=== PATIENT | male | born 1945 | race Caucasian/White ===

== ENCOUNTER 2019-09-12 07:20 | Emergency (ER) | payer OTHER ==
--- OUTSIDE RECORDS SUMMARY | 2019-09-12 07:23 | XMS REPORT | Clinical Summary ---
:1945 Author Organization [facility] Address [address] [place] [id number] Care Team Providers Name Role Phone MD Mark Primary Care Provider Allergies Active Allergy Reactions Severity Noted Date Comments Penicillins Other (See Comments) 07/11/2009 Upsets stomach Medications Medication Sig Dispensed Refills Start Date End Date Status mupirocin (BACTROBAN) 2 Apply to wound 0 10/08/2018 Active % ointment twice a day triamcinolone (KENALOG) Apply to affected 0 05/04/19 20 Active 0.1 % cream area on legs 2 times daily as needed for 2-4 weeks. Avoid face/groin/axilla e. ojmorunf-ndgcaihsyr-xac as needed. 0 08/18/2018 Active ymyxin (VERONICA-POLYCIN) ophthalmic ointment Active Problems Problem Noted Date SOB (shortness of breath) 05/11/2019 Subclavian arterial stenosis 05/11/2019 Encounters Date Type Specialty Care Team Description 05/19/2019 Travel 05/11/2019 Office Visit Cardiology Colby Au MD SOB (yin rtness of breath) (Primary Dx); Subclavian collette rial stenosis (HCC); Carotid artery disease, unspecified laterality, unspecified type (HCC) after 09/11/2018 Social History Tobacco Use Types Packs/Day Years Used Date Current Every Day Smoker Cigarettes 1.5 50 Smokeless Tobacco: Never Used Alcohol Use Drinks/Week oz/Week Comments Yes 7 Cans of beer 7.0 Sex Assigned at Date Recorded Not on file Job Start Date Occupation Industry Not on file Not on file Not on file Travel History Travel Start Travel End No recent travel history available. Last Filed Vital Signs Vital Sign Reading Time Taken Comments Blood Pressure 117/77 05/11/2019 11:01 AM [employer] Pulse 77 05/11/2019 11:01 AM [employer] Temperature - - Respiratory Rate - - Oxygen Saturation - - Inhaled Oxygen Concentration - - Weight 60.3 kg (133 lb) 05/11/2019 11:01 AM [employer] Height 170.2 cm (5' 7") 05/11/2019 11:01 AM [employer] Body Mass Index 20.83 05/11/2019 11:01 AM [employer] Plan of Treatment Date Type Specialty Care Team Description 05/09/2020 Office Visit Cardiology Colby Au MD [address] [place], [place] [address] [phone] Health Maintenance Due Date Last Done Comments COLONOSCOPY SCREENING 07/05/1993 SHINGLES VACCINES (#1) 07/05/1993 65+ PNEUMOCOCCAL VACCINE (1 of 2 - PCV13) 07/05/2008 INFLUENZA VACCINE 10/09/2019 Procedures Procedure Name Priority Date/Time Associated Diagnosis Comme nts TTE COMPLETE, W Routine 05/19/2019 2:34 PM SOB (shortness of Results for this CONTRAST, W DOPPLER CDT breath) procedure are in (C8929) Subclavian arterial the resu lts stenosis (HCC) section. Carotid artery disease, unspecified laterality, unspecified type (HCC) ECG 12-LEAD Routine 05/11/2019 11:00 AM SOB (shortness of Res ults for this [employer] breath) procedure are i n the results section. after 09/11/2018 Results Transthoracic Echocardiogram Complete, (w Contrast, Strain and 3D if needed) (05/19/2019 2:34 PM CDT) Specimen Narrative Performed At [facility] Echo cardiography Report Pat.Name: TAHIR CARVAJAL Pat.ID: [id number]Date: 05/19/2019 Refer.MD: COLBY AU MD Exam Time: 10:42:00 AM Study Type:Ro utine Echo Height: 67in Weight: 133lb BSA: 1.7 m2 A ge: 1945,73Y Sex: MALE BP: 117/77 HR: 70 bpm Sonogrphr: SINTIA Marroquin FASE Pat. Stat.:Outpatient Room: [facility] Study Status:Final Echo Event ID:[id number] Order ID: [id number] Reason for Study:SOB, suspected cardiac etiology Procedures: 2D Echo, Colorflow Doppler Race: C SUMMARY: Normal 2D and Doppler examination. FINDINGS: LV: LV size is normal. LV EF is normal. Overall wall motion is normal. Estimated EF is 55-59%. RV: RV size is normal. RV systo lic function is normal. LA: LA size is normal. RA: RA size is normal. AO: Aortic root diameter is nor mal. ALIX: No pericardial effusion. AV: No structural AV abnormalit ies noted. MV: No structural MV abnormalit ies noted. PV: Pulmonic valve not well see n. TV: No structural TV abnormalit ies noted. Alvarado: Normal diastolic function an d LV filling pressures. Other: Estimated PA systolic pressu re is 21 mmHg, assuming a mean RAP of 5 mmHg. MEASUREMENTS: 2D Parasternal Long [place] Ao An 1.5 cm LVPWd 0.65 cm Ao Rtd 3.4 cm Index 2 cm/m2 LA Ds 2.1 cm IVSd 0.71 cm RWT 0.36 LVIDd 3.6 cm Index 2.1 cm/m2 LV Mass 64 g (122-1 74) LVIDs 2.5 cm LVM In dex 38 g/m LV%fs 31 % LVOT 1.4 cm LA Sng Plane LA Area 9.4 cm (8.8-23.4) LA Vol 17 ml Index 9.9 ml/m2 LA LngAx 4.8 cm LVOT LVOT Area 1.6 cm Signed 05/19/2019 05:06 PM Yasir Diaz MD Procedure Note Interface, Radiology Results In - 2019 5:08 PM CDT [facility] Echocardiography Report Pat.Name: TAHIR CARVAJAL Pat.I D: [id number] .Date: 05/19/2019 Refer .MD: COLBY AU MD Exam Time: 10:42:00 AM Study Type:Routine Echo Height: 67in Weigh t: 133lb BSA: 1.7 m2 Age: 2 1945,73Y Sex: MALE BP: 117/77 HR: 70 bpm Sonogrphr: SINTIA Marroquin FASE Pat. Stat.:Outpatient Room: [place] Study Status:Final Echo Event ID:[id number] Order ID: [id number] Reason for Study:SOB, suspected cardiac etiology Procedures: 2D Echo, Colorflow Doppler Race: C SUMMARY: Normal 2D and Doppler examination. FINDINGS: LV: LV size is normal. LV EF is no rmal. Overall wall motion is normal. Estimated EF is 55-59 %. RV: RV size is normal. RV systolic function is normal. LA: LA size is normal. RA: RA size is normal. AO: Aortic root diameter is normal . ALIX: No pericardial effusion. AV: No structural AV abnormalities noted. MV: No structural MV abnormalities noted. PV: Pulmonic valve not well seen. TV: No structural TV abnormalities noted. Alvarado: Normal diastolic function and LV filling pressures. Other: Estimated PA systolic pressure is 21 mmHg, assuming a mean RAP of 5 mmHg. 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 Performing Organization Address City/[facility]/[place] [employer] Phone Number [facility] [address] [address] [place] [address] after 09/11/2018 Insurance Payer Benefit Plan / Subscriber ID Effective Dates Phone Addre ss Type Group MEDICARE MEDICARE PART A xxxxxxxxxxx 2008-Present [place] B Advance Directives For more information, please contact: [phone] Type Date Recorded Patient Information Services Tech Explanati on Advance Directives, Living Will and Medical Power of Electrician Chief
--- OUTSIDE RECORDS SUMMARY | 2019-09-12 07:25 | XMS REPORT ---
:1945 Author Organization [employer] Care Team Providers Name Role Phone Shi Ingram Provider Role Unavailable Allergies No Known Allergies Problems Problem Type Condition Code Onset Dates Condition Statu s Problem Renal mass N28.89 Active Medications No Known Medications Results No Known Results Summary Purpose [employer] Submission
--- OUTSIDE RECORDS SUMMARY | 2019-09-12 07:25 | XMS REPORT ---
:1945 Author Organization [employer] Care Team Providers Name Role Phone Shi Ingram Provider Role Unavailable Allergies, Adverse Reactions, Alerts Substance Reaction Event Type pcn Info Not Available Non Drug Allergy Problems Problem Type Condition Code Onset Dates Condition Statu s Assessment Renal mass N28.89 Active Problem Renal mass N28.89 Active Medications Medication Code Code Instructions Start End Status Dosage System Date Date Mupirocin NDC 90661113256 2 % Externally Active 1 a pplication Three times a day Lotrimin AF NDC 87050155544 1 % Externally Active 1 application Twice a day Triamcinolone NDC 0 0.1 & 5 % Active as direc luke Acet-Dimethicone Externally Results No Known Results Summary Purpose eClinicalWorks Submission
--- OUTSIDE RECORDS SUMMARY | 2019-09-12 07:25 | XMS REPORT | Clinical Summary ---
:1945 Author Organization [facility] Address [address] [place] [address] Care Team Providers Name Role Phone Phu Hussein Unavailable Allergies Active Allergy Reactions Severity Noted Date Comments Penicillins 09/07/2019 Stomach upset, diarrhea Medications Medication Sig Dispensed Refills Start Date End Date Status albuterol HFA Inhale 1 puff by 0 Active (VENTOLIN HFA) 90 mouth via inhaler mcg/actuation inhaler every 6 (six) hours as needed for Wheezing. fluticasone-umeclidin- Inhale by mouth 0 Active vilanter 100-62.5-25 via inhaler daily. mcg DsDv Active Problems Problem Noted Date Lung nodule 09/08/2019 Mediastinal lymphadenopathy 09/08/2019 Encounters Date Type Specialty Care Team Description 09/08/2019 Anesthesia Event Virgen Maria CRNA 09/08/2019 Surgery Bassam Fierro BRONCHOSCOPY,EN DOBRONCH MD [facility] IAL ULTRASOUND (EBUS) TRANSTRACH/ TRA NSBRONCH SAMPLING 09/08/2019 Hospital Encounter Bassam Fierro MD 09/08/2019 Outside Orders Lab Bassam Fierro MD 09/07/2019 Hospital Encounter Pre-Admission Arrived Testing 09/03/2019 Hospital Encounter Computed Bassam Fierro Lung nodu le; Tomography MD [facility] 08/26/2019 Outside Orders Central Scheduling Bassam Fierro Lung no dule (Primary Dx); MD [facility] Mediastinal lym phadenopathy 08/11/2019 Orders Only Urology Bipin Lamar Right renal ma sebastian Arguelles MD (Primary Dx) after 09/11/2018 Social History Tobacco Use Types Packs/Day Years Used Date Current Every Day Smoker 0.5 50 Smokeless Tobacco: Never Used Alcohol Use Drinks/Week oz/Week Comments Yes 7 Cans of beer 4.2 Sex Assigned at Date Recorded Not on file Job Start Date Occupation Industry Not on file Not on file Not on file Travel History Travel Start Travel End No recent travel history available. Last Filed Vital Signs Vital Sign Reading Time Taken Blood Pressure 111/67 09/08/2019 12:10 PM CDT Pulse 73 09/08/2019 12:10 PM CDT Temperature 36.3 C (97.4 F) 09/08/2019 12:10 PM CDT Respiratory Rate 15 09/08/2019 12:10 PM CDT Oxygen Saturation 99% 09/08/2019 12:10 PM CDT Inhaled Oxygen Concentration - - Weight 58.9 kg (129 lb 14.4 oz) 09/08/2019 6:1 2 AM CDT Height 170.2 cm (5' 7") 09/08/2019 6:12 AM CDT Body Mass Index 20.35 09/08/2019 6:12 AM CDT Plan of Treatment Date Type Specialty Care Team Description 09/29/2019 Hospital Encounter Radiology Bipin Lamar MD [address] Urology [place]ame[place] [id number] [phone] Procedures Procedure Name Priority Date/Time Associated Diagnosis Comme nts TRANSFUSION SERVICE 09/09/2019 6:04 REPORT - SCAN PM CDT BRONCHIAL CULTURE + Routine 09/08/2019 4:21 Resu lts for this GRAM STAIN PM CDT procedure are i n the results section. XR CHEST 1 VIEW STAT 09/08/2019 11:24 Results for this PORTABLE/BEDSIDE AM CDT procedure a re in the results section. REPORT OF PROCEDURE 09/08/2019 11:01 - ENDOSCOPY URL AM CDT EBUS FNA REQUEST Routine 09/08/2019 10:42 Results for this AM CDT procedure are i n the results section. FINE NEEDLE AP Routine 09/08/2019 10:42 Results for this ASPIRATE BY EBUS AM CDT procedure a re in the results section. EBUS FNA REQUEST Routine 09/08/2019 10:37 Results for this AM CDT procedure are i n the results section. FINE NEEDLE AP Routine 09/08/2019 10:37 Results for this ASPIRATE BY EBUS AM CDT procedure a re in the results section. EBUS FNA REQUEST Routine 09/08/2019 10:32 Results for this AM CDT procedure are i n the results section. FINE NEEDLE AP Routine 09/08/2019 10:32 Results for this ASPIRATE BY EBUS AM CDT procedure a re in the results section. AFB CULTURE + SMEAR Routine 09/08/2019 10:31 (NON-SPUTUM) AM CDT BRONCHIAL CULTURE + Routine 09/08/2019 10:31 Resu lts for this GRAM STAIN AM CDT procedure are i n the results section. FUNGUS CULTURE + Routine 09/08/2019 10:31 SMEAR AM CDT CYTOLOGY REQUEST Routine 09/08/2019 10:31 Results for this AM CDT procedure are i n the results section. SPIN/CONCENTRATION Routine 09/08/2019 10:31 Resul ts for this CHARGE AM CDT procedure are i n the results section. CYTOLOGY AP Routine 09/08/2019 10:31 Results for this AM CDT procedure are i n the results section. AFB CULTURE + SMEAR Routine 09/08/2019 10:29 (NON-SPUTUM) AM CDT FUNGUS CULTURE + Routine 09/08/2019 10:29 SMEAR AM CDT SPIN/CONCENTRATION Routine 09/08/2019 10:29 Resul ts for this CHARGE AM CDT procedure are i n the results section. CYTOLOGY REQUEST Routine 09/08/2019 10:28 Results for this AM CDT procedure are i n the results section. CYTOLOGY AP Routine 09/08/2019 10:28 Results for this AM CDT procedure are i n the results section. FL FLUORO Routine 09/08/2019 10:25 Results for this NON-SPECIFIC UP TO AM CDT procedure are in 1 HOUR the results section. AFB CULTURE + SMEAR Routine 09/08/2019 9:57 (NON-SPUTUM) AM CDT SURGICALLY OBTAINED Routine 09/08/2019 9:57 Resu lts for this CULTURE + GRAM AM CDT procedure are in STAIN the results section. FUNGUS CULTURE + Routine 09/08/2019 9:57 SMEAR AM CDT AFB CULTURE + SMEAR Routine 09/08/2019 9:49 (NON-SPUTUM) AM CDT SURGICALLY OBTAINED Routine 09/08/2019 9:49 Resu lts for this CULTURE + GRAM AM CDT procedure are in STAIN the results section. FUNGUS CULTURE + Routine 09/08/2019 9:49 SMEAR AM CDT FINE NEEDLE Routine 09/08/2019 9:47 Results for this ASPIRATE (FNA) AM CDT procedure are in REQUEST the results section. FINE NEEDLE AP Routine 09/08/2019 9:47 Results for this ASPIRATION BY AM CDT procedure are in CLINICIAN the results section. BRONCHOSCOPY,ENDOBR 09/08/2019 8:00 Lung nodule ONCHIAL ULTRASOUND AM CDT Mediastinal (EBUS) DIAGNOSTIC/ lymphadenopathy THERAPEUTIC Special Needs (RADIO EBUS, SUPER DIMENSION RESERVED GE 9900 LANGUAGE TRANSLATOR, OLYMPUS MERIT REP MAYBE PRESENT, AND INTUITIVE SURGI EDITH REP MAYBE PRESENT) BRONCHOSCOPY,BRUSHINGS 09/08/2019 8:00 AM CDT L jacky nodule Mediastinal lymphadenopathy Special Needs (RADIO EBUS, SUPER DIMENSION RESERVED GE 9900 LANGUAGE TRANSLATOR, OLYMPUS MERIT REP MAYBE PRESENT, AND INTUITIVE SURGI EDITH REP MAYBE PRESENT) BRONCHOSCOPY,BRONCHIAL ALVEOLAR 09/08/2019 8:00 AM Lung nodule LAVAGE CDT Mediastinal lymphadenopathy Special Needs (RADIO EBUS, SUPER DIMENSION RESERVED GE 9900 LANGUAGE TRANSLATOR, OLYMPUS MERIT REP MAYBE PRESENT, AND INTUITIVE SURGI EDITH REP MAYBE PRESENT) BRONCHOSCOPY,TRANSBRONCHIAL LUNG 09/08/2019 8:0 0 Lung nodule BIOPSY AM CDT Mediastinal lymphadenopathy Special Needs (RADIO EBUS, SUPER DIMENSION RESERVED GE 9900 LANGUAGE TRANSLATOR, OLYMPUS MERIT REP MAYBE PRESENT, AND INTUITIVE SURGI EDITH REP MAYBE PRESENT) BRONCHOSCOPY,TRANSBRONCHIAL NEEDLE 09/08/2019 8 :00 Lung nodule ASPIRATION BIOPSY AM CDT Mediastinal lymphadenop athy Special Needs (RADIO EBUS, SUPER DIMENSION RESERVED GE 9900 LANGUAGE TRANSLATOR, OLYMPUS MERIT REP MAYBE PRESENT, AND INTUITIVE SURGI EDITH REP MAYBE PRESENT) BRONCHOSCOPY,SUPER D 09/08/2019 8:00 AM CDT Elisa g nodule Mediastinal lymphadenopathy Special Needs (RADIO EBUS, SUPER DIMENSION RESERVED GE 9900 LANGUAGE TRANSLATOR, OLYMPUS MERIT REP MAYBE PRESENT, AND INTUITIVE SURGI EDITH REP MAYBE PRESENT) BRONCHOSCOPY,ENDOBRONCHIAL 09/08/2019 8:00 AM L jacky nodule ULTRASOUND (EBUS) TRANSTRACH/ CDT Mediastinal lymphadenopathy TRANSBRONCH SAMPLING Special Needs (RADIO EBUS, SUPER DIMENSION RESERVED GE 9900 LANGUAGE TRANSLATOR, OLYMPUS MERIT REP MAYBE PRESENT, AND INTUITIVE SURGI EDITH REP MAYBE PRESENT) ABORH, MANUAL STAT 09/08/2019 6:34 Results fo r this AM CDT procedure are i n the results section. CBC W/PLT COUNT & STAT 09/08/2019 6:26 Result s for this AUTO DIFFERENTIAL AM CDT procedure are in the results section. TYPE AND SCREEN, Routine 09/08/2019 6:26 Results for this AUTOMATED AM CDT procedure are i n the results section. APTT STAT 09/08/2019 6:26 Results for this AM CDT procedure are i n the results section. PROTHROMBIN TIME/INR STAT 09/08/2019 6:26 Res ults for this AM CDT procedure are i n the results section. CBC W/PLT COUNT & STAT 09/08/2019 6:26 Result s for this AUTO DIFFERENTIAL AM CDT procedure are in the results section. COMPREHENSIVE STAT 09/08/2019 6:26 Results fo r this METABOLIC PANEL AM CDT procedure ar e in the results section. POCT-GLUCOSE METER Routine 09/08/2019 6:05 Resul ts for this AM CDT procedure are i n the results section. CT CHEST WITHOUT IV Routine 09/03/2019 11:18 Lung nodule Results for this CONTRAST AM CDT Mediastinal procedure are i n lymphadenopathy the results section. after 09/11/2018 Results TRANSFUSION SERVICE REPORT - SCAN (09/09/2019 6:04 PM CDT) Narrative Performed At This result has an attachment that is no t available. Bronchial culture + gram stain (09/08/2019 4:21 PM CDT)Only the most recent of2 resultswithin the time period is included. Result No growth [facility] Gram Stain Result <1+ White blood cells seen [facility] Gram Stain Result No organisms seen [facility] Specimen Bronch Brushing Performing Organization Address City/State/Zipcode Phone Number [facility] [address] [place] [address] CENTER XR chest 1 view portable / bedside (09/08/2019 11:24 AM CDT) Specimen Narrative Performed At FINAL REPORT GE [facility] CLINICAL HISTORY: s/p J CARLOS TBBX, rule out PTX TECHNIQUE: 1 view of the chest. COMPARISON: CT 09/03/2019 IMPRESSION: There is no evidence of pneumothorax sta tus post biopsy of the left upper lung nodule. There are no new infi ltrates or effusions. The cardiomediastinal silhouette is within n ormal limits for size. Signed: Vilma Aparicio MD Report Verified Date/Time:09/08/2019 12:05:58 Reading [facility] [place] Procedure Note Interface, External Ris In - 09/08/2019 12:08 PM CDT FINAL REPORT CLINICAL HISTORY: s/p J CARLOS TBBX, rule out PTX TECHNIQUE: 1 view of the chest. COMPARISON: CT 09/03/2019 IMPRESSION: There is no evidence of pneumothorax sta tus post biopsy of the left upper lung nodule. There are no new infi ltrates or effusions. The cardiomediastinal silhouette is within n ormal limits for size. Signed: Vilma Aparicio MD Report Verified Date/Time: 09/08/2019 1 2:05:58 Reading Location: [facility] Reading Room Performing Organization Address City/[facility] Phone Number RIS REPORT OF PROCEDURE - ENDOSCOPY URL (09/08/2019 11:01 AM CDT) Narrative Performed At This result has an attachment that is no t available. EBUS FNA REQUEST (09/08/2019 10:42 AM CDT)Only the most recent of3 resultswithin the time period is included. Cytology See Separate Report [facility] Specimen EBUS Fine Needle Aspirate - Lymph Node, Interlobar, Left, Station 11L Performing Organization Address City/[facility] Centercode Phone Number [facility] MEDICAL [address] [place] [address] CENTER Fine Needle Aspiration by EBUS (09/08/2019 10:42 AM CDT)Only the most recent of3 resultswithin the time period is included. Case Report Medical Cytology Report Case: [id number] [facility] Authorizing Provider:Bassam Olson MDCollected: 09/08/2019 10:42 AM [facility] Ordering Location: [facility] PERIOPERATIVE Received:09/08/2019 01:40 PM SERVICES Pathologist: Mu Snider MD Specimen:Lymph Node, Interlobar, Left, Station 11L DIAGNOSIS LYMPH NODE, INTERLOBAR, LEFT , STATION 11L, FNA BY CLINICIAN (CYTOSPINS AND CELL BLOCK OF ASPIRATE): [facility] - NON-DIAGNOSTIC ASPIRATE [facility] - SCATTERED BENIGN BRONCH IAL CELLS AND MACROPHAGES PRESENT; NO LYMPHOID TISSUE IDENTIFIED Signing Pathologist Direct Phone Line: [phone] COMMENT [facility] Please also see surgical pat hology report [id number] and cytopathology reports [id number]; [id number] through [id number]. [facility] CPT Code(s) 24421, 19883 [facility] CLINICAL DATA Lung nodule; mediastinal [facility] lymphadenopathy; chronic [facility] obstructive pulmonary disease; current every day smoker; skin cancer - multiple, removed SPECIMEN SOURCE LYMPH NODE, INTERLOBAR, LEFT, CH I [facility] STATION 11L FNA [facility] GROSS DESCRIPTION Received 33 ml cytorich red fixative sample; prepared cell block(A2) and 2 cytospins [facility] Collected: [id number] [facility] CE NTER Received: [id number] SPECIAL STUDIES The interpretation of this ase included the use of immunohistochemistry or special stains. [facility] Control Slides Examined: In -house known positive controls were evaluated along with the test tissue. These control slides run alongside of the patients sample show appropriate staining. Internal posit viola and negative controls when available are aleja morales Immunohistochemistry technic al testing was performed at [facility], Pathology Laboratory where it was developed and its performance characteristics were determined. It has not be en cleared or approved by [facility] U.S. Food and Drug Administration. The FDA has determined that such clearance or approval is not necessary. The test is used for clinical purposes. It should not be regarde d as investigational or for research. This laboratory is certified under the Clinical Laboratory Improvement Amendments of 1988 (CLIA-88) as qualified to perform high complexity clinical laboratory testing. Gross assessment was [facility] performed at [place], Department of [facility] Pathology, [address] [place] [address], Technical component was [facility] performed at [place], Department of [facility] Pathology, [address] [place] [address], Professional component [facility] was performed at [place], Department of [facility] Pathology, [address] [place] [address], Specimen EBUS Fine Needle Aspirate - Lymph Node, Interlobar, Left, Station 11L Narrative Performed At This result has an attachment that is no t available. Performing Organization Address City/[facility]/Zipcode Phone Number [address] [address] [place] CYTOLOGY REQUEST (09/08/2019 10:31 AM CDT)Only the most recent of2 resultswithin the time period is included. Cytology See Separate Report [facility] Specimen BAL Performing Organization Address City/[facility]/Zipcode Phone Number [address] [address] [place] SPIN/CONCENTRATION CHARGE (09/08/2019 10:31 AM CDT)Only the most recent of2 resultswithin the time period is included. Concentration charged Done [facility] Specimen BAL Performing Organization Address [facility]/Zipcode Phone Number [address] [address] [place] Cytology (09/08/2019 10:31 AM CDT)Only the most recent of2 resultswithin the time period is included. Case Report Medical Cytology Report Case: [id number] [facility] Authorizing Provider:Bassam Olson MDCollected: 09/08/2019 10:31 AM [facility] Ordering Location: [facility] PERIOPERATIVE Received:09/08/2019 01:40 PM SERVICES Pathologist: Mu Snider MD Specimen:Lung, Left Upper Lobe, BAL DIAGNOSIS LUNG, LEFT UPPER LOBE, BAL (CYTOSPINS): [facility] - POSITIVE FOR MALIGNANCY [facility] - POORLY DIFFERENTIATED NONSMALL CELL [place] Signing Pathologist Direct Phone Line: [phone] COMMENT Please also see surgical [facility] pathology report [id number] [facility] and cytopathology reports [id number]; [id number] through [id number]. CPT Code(s) 91514 [facility] CLINICAL DATA Lung nodule; mediastinal [facility] lymphadenopathy; chronic [facility] obstructive pulmonary disease; current every day smoker; skin cancer - multiple, removed SPECIMEN SOURCE LUNG, LEFT UPPER LOBE BAL [facility] GROSS DESCRIPTION Received 5 ml bloody fluid; prepared 4 cytospi ns [facility] Collected: [id number] [facility] CE NTER Received: [id number] STATEMENT OF ADEQUACY Satisfactory [facility] Gross assessment was [facility] performed at [place], Department of [facility] Pathology, [address] [place] [address], Technical component was [facility] performed at [place], Department of [facility] Pathology, [address] [place] [address], Professional component was [facility] performed at [place], Department of [facility] Pathology, [address] [place] [address], Specimen BAL Narrative Performed At This result has an attachment that is no t available. Performing Organization Address City/State/Zipcode Phone Number [address] [phone] [facility] non-specific up to 1 hour (09/08/2019 10:25 AM CDT) Specimen Narrative Performed At Fluoroscopic unit utilized for a procedure performed i n the OR.No GE RIS interpretation was requested.Refer to the operativ e report for findings.Refer to PACS for patient radiation dose information. Procedure Note Interface, External Ris In - 09/09/2019 11:12 AM CDT Fluoroscopic unit utilized for a procedu re performed in the OR. No interpretation was requested. Refer to the operative r eport for findings. Refer to PACS for patient radiation dose information. Performing Organization Address City/State/Zipcode Phone Number GE RIS Surgically obtained culture + gram stain (09/08/2019 9:57 AM CDT)Only the most recent of2 resultswithin the time period is included. Result See comment [facility] Gram Stain Result 1+ WBCs [facility] Gram Stain Result No organisms seen [facility] Specimen Tissue Narrative Performed At <1+ Normal respiratory deanna present [facility] Performing Organization Address [facility] Centerconc Phone Number [facility] [address] [place] [address] [place] FINE NEEDLE ASPIRATE (FNA) REQUEST (09/08/2019 9:47 AM CDT) Cytology See Separate Report [facility] Specimen Fine Needle Aspirate Performing Organization Address [facility] [place] Phone [place] [facility] [address] [place] [address] [place] Fine Needle Aspirate by Clinician (09/08/2019 9:47 AM CDT) Case Report Medical Cytology Report Case: [id number] [facility] Authorizing Provider:Bassam Olson MDCollected: 09/08/2019 09:47 AM [facility] MEDICAL Ordering Location: [facility] PERIOPER[facility]IVE Received:09/08/2019 09:49 AM CENTER SERVICES Pathologist: Mu Snider MD Specimen:Lung, Left Upper Lobe DIAGNOSIS LUNG, LEFT UPPER LOBE, FNA B Y CLINICIAN (DIRECT SMEARS AND CELL BLOCK OF ASPIRATE): [facility] - POSITIVE FOR MALIGNANCY [facility] - POORLY DIFFERENTIATED NONSMALL CELL [facility] Signing Pathologist Direct Phone Line: COMMENT Please also see surgical [facility] pathology report [id number] and [facility] cytopathology reports [id number] C ENTER through [id number]. CPT Code(s) 44390, 75759, [address] [facility] CLINICAL DATA Lung nodule; mediastinal [facility] lymphaden[facility]; chronic [facility] MEDICAL obstructive pulmonary disease; C ENTER current every day smoker; skin cancer - multiple, removed SPECIMEN SOURCE LUNG, LEFT UPPER LOBE FNA [facility] GROSS DESCRIPTION Prepared 6 direct smear slid es and cell block(A2) from FNA samples collected in 44 ml cytorich red fixative [facility]bar [facility] Collected: [facility] MED ICAL Received: [id number] [place] INTRAPROCEDURAL ADEQUACY PASSES 1-3: [facility] PASS 2: FEW CLUSTERS OF SUSPICIOUS CELLS (MORE M ATERIAL NEEDED) [facility] MEDICAL PASS 1 - NECROTIC MATERIAL CENTE R PASS 3 - BLOOD ONLY (10:05AM, ) SPECIAL STUDIES The interpretation of this c ase included the use of immunohistochemistry or special stains. [facility] Control Slides Examined: In -house known positive controls were evaluated along with the test tissue. These control slides run alongside of the patients sample show appropriate staining. Internal [facility] viola and negative controls when available are aleja morales Immunohistochemistry technic al testing was performed at [facility], Pathology Laboratory where it was developed and its performance characteristics were determined. It has not be en cleared or approved by [facility] U.S. Food and Drug Administration. The FDA has determined that such clearance or approval is not necessary. The test is used for clinical purposes. It should not be regarde d as investigational or for research. This laboratory is certified under the Clinical Laboratory Improvement Amendments of 1988 (CLIA-88) as qualified to perform high complexity clinical laboratory testing. Gross assessment was [facility] performed at [facility] MEDICAL Pathology, [address] [place] [address], [place] [address], Technical component was [facility] performed at [facility] MEDICAL Pathology, [address] [place] [address], [place] [address], Professional component was [facility], Department of [facility] MEDICAL Pathology, [address] [facility], [place] [address], Specimen Fine Needle Aspirate Narrative Performed At This result has an attachment that is no t available. Performing Organization Address City/[facility]/Zipcode Phone Number [address] [address] CENTER ABORH, manual (09/08/2019 6:34 AM CDT) ABO Grouping O [facility] Rh Factor POS [facility] Specimen Blood Performing Organization Address [facility]/Zipcode Phone Number [address] [address] Type and screen, automated (09/08/2019 6:26 AM CDT) ABO/RH AUTOMATED (BEAKER) O POSITIVE [facility] Ab Scrn NEGATIVE [facility] Specimen Blood Performing Organization Address [facility] Centercode Phone Number [address] [address] CBC with platelet count + automated diff (09/08/2019 6:26 AM CDT) WBC 7.4 3.5 - 10.5 K/L [facility] RBC 5.08 4.63 - 6.08 M/L [facility] Hemoglobin 13.7 13.7 - 17.5 GM/DL [facility] Hematocrit 44.1 40.1 - 51.0 % [facility] MCV 86.8 79.0 - 92.2 fL [facility] MCH 27.0 25.7 - 32.2 pg [facility] MCHC 31.1 (L) 32.3 - 36.5 GM/DL [facility] RDW 14.6 (H) 11.6 - 14.4 % [facility] Platelets 308 150 - 450 K/CU MM [facility] MPV 9.0 (L) 9.4 - 12.4 fL [facility] [facility] nRBC 0 0 - 0 /100 WBC [facility] % Neutros 74 % [facility] % Lymphs 11 % [facility] % Monos 10 % [facility] % Eos 3 % [facility] % Baso 1 % [facility] # Neutros 5.47 (H) 1.78 - 5.38 K/L [facility] # Lymphs 0.84 (L) 1.32 - 3.57 K/L [facility] # Monos 0.74 0.30 - 0.82 K/L [facility] # Eos 0.24 0.04 - 0.54 K/L [facility] # Baso 0.06 0.01 - 0.08 K/L [facility] Immature Granulocytes-Relative 1 0 - 1 % C HI [facility] Specimen Blood Performing Organization Address City/State/Zipcode Phone Number [address] [address] CENTER aPTT (09/08/2019 6:26 AM CDT) PTT 27.7 22.5 - 36.0 seconds [facility] Specimen Blood Performing Organization Address City/[facility]/Zipcode Phone Number [address] [address] [place] Prothrombin time/INR (09/08/2019 6:26 AM CDT) Protime 13.2 11.9 - 14.2 seconds [facility] INR 1.0 <=5.9 [facility] Specimen Blood Narrative Performed At Effective 08/05/2018: PT Reference Range [facility] Change New: 11.9-14.2Previous: 11.7-14.7 RECOMMENDED COUMADIN/WARFARIN INR THERAPY RANGES STANDARD DOSE: 2.0-3.0Includes: PROPHYLAXIS for venous thrombosis, systemic embolization; TREATMENT for venous thrombosis and/or pulmonary embolus. HIGH RISK: Target INR is 2.5-3.5 for patients wiht mechanical heart valves. Performing Organization Address City/State/Zipcode Phone Number [facility] [address] [place] [address] CENTER Comprehensive metabolic panel (09/08/2019 6:26 AM CDT) Protein, Total 7.0 6.0 - 8.3 gm/dL [facility] Albumin 3.8 3.5 - 5.0 g/dL [facility] Alkaline Phosphatase 109 40 - 150 U/L [facility] ER Total Bilirubin 0.4 0.2 - 1.2 mg/dL [facility] Sodium 139 136 - 145 meq/L [facility] Potassium 4.2 3.5 - 5.1 meq/L [facility] Chloride 106 98 - 107 meq/L [facility] ER CO2 25 22 - 29 meq/L [facility] BUN 21 7 - 21 mg/dL [facility] ER Creatinine 1.07 0.57 - 1.25 mg/dL [facility] MED[facility] ER Glucose 90 70 - 105 mg/dL [facility] ER Calcium 8.5 8.4 - 10.2 mg/dL [facility] H [facility] MEDICAL [facility] ER AST 18 5 - 34 U/L [facility] ER ALT 16 6 - 55 U/L [facility] ER EGFR 67Comment: ESTIMATED GFR mL/min/1.73 sq m [facility] IS NOT ACCURATE [facility] CREATININE CLEARANCE IN PREDICTING GLOMERULAR FILTRATION RATE. ESTIMATED GFR IS NOT APPLICABLE FOR DIALYSIS PATIENTS. Specimen Blood Narrative Performed At Oil Well Engineer ID - BS [facility] Performing Organization Address City/State/Zipcode Phone Number [facility] [address] [place], [place] [phone] [place] POC-Glucose meter (09/08/2019 6:05 AM CDT) POC-Glucose Meter 88Comment: : TESTED AT 70 - 110 mg/dL [facility] [address] [place] [address] [place], [id number]: Oil Well Engineer/Window Covering Sales Consultant ID = [id number] for GLENIS HOYOS Specimen Blood Performing Organization Address City/[facility]/Zipcode Phone Number [facility] [address] [place], [place] [phone] [place] CT Chest without IV Contrast (09/03/2019 11:18 AM CDT) Specimen Narrative Performed At FINAL REPORT [employer] EXAM: CT Chest WITHOUT contrast INDICATION: Lung nodule COMPARISON: None TECHNIQUE: Chest was scanned utilizing a multidetec tor helical scanner from the lung apex through the level of the adren al glands without administration of IV contrast. Absence o f intravenous contrast decreases sensitivity for detection of l ymphadenopathy and vascular pathology. Coronal and sagittal reformat ions were obtained. Alfredo bronch protocol was performed including 0.63 mm slices. IV CONTRAST: None COMPLICATIONS: None RADIATION DOSE: Total DLP: 404.42 mGy*cm Estimated effective dose: (DLP x 0.014 x size factor) mSv CTDIvol has been reviewed. It i s below the limits set by the Radiation Protocol Committee (RPC). FINDINGS: Annotations given as (series/image numbe r) LINES/ TUBES: None. LUNGS AND AIRWAYS:There is a spicula luke left upper lobe mass measuring approximately 2.6 x 2.2 x 4.9 cm (3/153, 6/44). In the lateral left apex the mass has a pleural attachment with mild pleural thickening. There is minimal bilateral a pical pleural thickening. No other suspicious lesions or airspace opa cities. Linear densities in the lung bases are compatible with scarr ing or atelectasis. There is a punctate subpleural calcification in t he right upper lobe likely representing a granuloma. Trachea and ma in bronchi are clear. There is mild bilateral perihilar bronchial wa ll thickening which may be seen with bronchitis or reactive airway disorder. PLEURA: No pleural effusion or pneumotho rax. HEART AND MEDIASTINUM: The thyroid gland appears normal.No mediastinal, hilar or axillary lymphaden opathy. There are scattered unenlarged mediastinal nodes, for exampl e 0.6 cm precarinal and small nodes in the aorticopulmonary area. The heart is normal in size. There is no pericardial effusion.The re are scattered calcified atherosclerotic plaques in the thoracic aorta without dilatation. Ascending aorta measures 3.3 cm, main pu lmonary artery 2.8 cm, normal. UPPER ABDOMEN: Included portions of the unenhanced liver, spleen, pancreas and adrenals show no evidence f or focal pathology. No radiopaque stones are seen in the visual ized portions of the gallbladder. There is a cystic area in t he central aspect of the included upper pole right kidney which i s not fully evaluated but likely represents a portion of a parapel delaney cyst. BONES: No acute or suspicious bony lesio n. Bones appear demineralized. There is mild age-indeter minate central compression of the T12 vertebral body. SOFT TISSUES: Superficial surrounding so ft tissue shows nonspecific mild right axillary lymphadenopathy with most prominent node measuring 1.0 cm. IMPRESSION: 1. Spiculated left upper lobe mass is hi ghly suspicious for neoplasm. The mass exhibits a small attachment to the pleura with slight pleural thickening, possibly representin g pleural involvement. 2. No other suspicious mass or airspace opacity. Signed: Cristino Frias MD Report Verified Date/Time:09/03/2019 14:07:39 Reading Location: [place] [id number] Procedure Note Interface, External Ris In - 09/03/2019 2:09 PM CDT FINAL REPORT EXAM: CT Chest WITHOUT contrast INDICATION: Lung nodule COMPARISON: None TECHNIQUE: Chest was scanned utilizing a multidetec tor helical scanner from the lung apex through the level of the adren al glands without administration of IV contrast. Absence o f intravenous contrast decreases sensitivity for detection of l ymphadenopathy and vascular pathology. Coronal and sagittal reformat ions were obtained. Alfredo bronch protocol was performed including 0.63 mm slices. IV CONTRAST: None COMPLICATIONS: None RADIATION DOSE: Total DLP: 404.42 mGy*cm Estimated effective dose: (DLP x 0. 014 x size factor) mSv CTDIvol has been reviewed. It is be low the limits set by the Radiation Protocol Committee (RPC). FINDINGS: Annotations given as (series/image numbe r) LINES/ TUBES: None. LUNGS AND AIRWAYS: There is a spiculate d left upper lobe mass measuring approximately 2.6 x 2.2 x 4.9 cm (3/153, /44). In the lateral left apex the mass has a pleural attachment with mild pleural thickening. There is minimal bilateral a pical pleural thickening. No other suspicious lesions or airspace opa cities. Linear densities in the lung bases are compatible with scarr ing or atelectasis. There is a punctate subpleural calcification in t he right upper lobe likely representing a granuloma. Trachea and ma in bronchi are clear. There is mild bilateral perihilar bronchial wa ll thickening which may be seen with bronchitis or reactive airway disorder. PLEURA: No pleural effusion or pneumotho rax. HEART AND MEDIASTINUM: The thyroid gland appears normal. No mediastinal, hilar or axillary lymphaden opathy. There are scattered unenlarged mediastinal nodes, for exampl e 0.6 cm precarinal and small nodes in the aorticopulmonary area. The heart is normal in size. There is no pericardial effusion. There are scattered calcified atherosclerotic plaques in the thoracic aorta without dilatation. Ascending aorta measures 3.3 cm, main pu lmonary artery 2.8 cm, normal. UPPER ABDOMEN: Included portions of the unenhanced liver, spleen, pancreas and adrenals show no evidence f or focal pathology. No radiopaque stones are seen in the visual ized portions of the gallbladder. There is a cystic area in t he central aspect of the included upper pole right kidney which i s not fully evaluated but likely represents a portion of a parapel delaney cyst. BONES: No acute or suspicious bony lesio n. Bones appear demineralized. There is mild age-indeter minate central compression of the T12 vertebral body. SOFT TISSUES: Superficial surrounding so ft tissue shows nonspecific mild right axillary lymphadenopathy with most prominent node measuring 1.0 cm. IMPRESSION: 1. Spiculated left upper lobe mass is hi ghly suspicious for neoplasm. The mass exhibits a small attachment to the pleura with slight pleural thickening, possibly representin g pleural involvement. 2. No other suspicious mass or airspace opacity. Signed: Cristino Frias MD Report Verified Date/Time: 09/03/2019 1 4:07:39 Reading Location: [facility] 1 - [id number] Performing Organization Address City/State/Zipcode Phone Number GE RIS after 09/11/2018 Insurance Payer Benefit Plan / Group Subscriber ID Type Phone A ddress MEDICARE MEDICARE A B xxxxxxxxxxx Medicare A[employer] - MGD CARE AET[employer] INDEMNITY NON CONTR xxxxxxxxxx Comm Advance Directives Patient has advance care planning documents on file. For more information, please contact:[address] [address]
--- OUTSIDE RECORDS SUMMARY | 2019-09-12 07:26 | XMS REPORT | Summary of Care ---
:[address] [facility] Address [address] [id number] Care Team Providers Name Role Phone Unavailable Primary Care Provider Unavailable Reason for Referral Radiology Services (Urgent) Status Reason Specialty Diagnoses / Referred By Contact Refe rred To Contact Procedures Pending Radiology Diagnoses Lung nodule Bassam Fierro MD Procedures CT PET SKULL-BASE MID-THIGH ([id number]) [facility] [address] [address] Phone: Radiology Services (Urgent) Status Reason Specialty Diagnoses / Procedures Referred By R eferred To Contact Contact Pending Radiology Diagnoses Lung nodule Mediastinal lymphadenopathy Bassam Fierro [place], Radiology Procedures CT CHEST HIGH RESOLUTION WO CONTRAST 7[address] [facility] 7[address] [facility] 1st Floor [address] [place] [address] [place] [address] Reason for Visit Reason Comments Lung Nodule Consult, Test & Treat (Routine) Status Reason Specialty Diagnoses / Referred By Referred To Procedures Contact Contact Authorization Not Consult, Pulmonary Diagnoses Lung mass nov/spot on lung Sri Lamar Ali Needed Test, and Disease / Procedures OR OFFICE OUTPATIENT NEW 30 MINUTES Mesfin Paulino MD Treat Pulmonology [address] [place], [place] [address] [facility] [address] [place] [phone] Phone: Fax: Encounter Details Date Type Department Care Team Description 08/26/2019 Office Visit [facility] Bassam Fierro MD Lung Nodule Medicine Pulmonary [address] 6th Floor, [address] [place] [address] [place] [address] [phone] Allergies Active Allergy Reactions Severity Noted Date Comments Penicillins Other (See Comments) 07/11/2009 Upsets stomach documented as of this encounter (statuses as of 08/26/2019) Medications Medication Sig Dispensed Refills Start Date End Date Status VERONICA-POLYCIN ophthalmic 1 APPLICATION 0 08/18/2018 Active ointment APPLY TO EYELIDS AT BEDTIME FOR ONE WEEK mupirocin (BACTROBAN) Apply to wound 30 g 1 10/08/2018 Active 2 % ointment twice a day triamcinolone Apply to affected 80 g 1 05/04/2019 Active (KENALOG) 0.1 % area on legs 2 creamIndications: times daily as Nummular eczema needed for 2-4 weeks. Avoid face/groin/axillae . Multiple Take 1 Tab by 0 Active Vitamins-Minerals mouth daily. (MULTIVITAMIN MEN 50+ OR) albuterol 108 (90 Inhale 2 Puffs by 8.5 g 11 08/26/2019 Active base) mcg/act inhaler mouth every 6 hours as needed for Wheezing. Fluticasone-Umeclidin- Inhale 1 60 Each 11 08/26/2019 Active Vilant 100-62.5-25 Inhalations by MCG/INH mouth daily. 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 Monthly or less 08/26/2019 How many drinks containing alcohol do you have on a 1 or 2 08/26/2019 typical day when you are drinking? How often do you have six or more drinks on one Never 08/26/2019 occasion? Sex Assigned at Date Recorded Male 07/16/2019 1:26 PM CDT Job Start Date Occupation Industry Not on file Not on file Not on file Travel History Travel Start Travel End No recent travel history available. COVID-19 Exposure Response Date Recorded In the last month, have you been in contact with No / Unsure 08/26/2019 9:39 AM CDT someone who was confirmed or suspected to have Coronavirus / COVID-19? documented as of this encounter Last Filed Vital Signs Vital Sign Reading Time Taken Comments Blood Pressure 116/70 08/26/2019 9:57 AM CDT Pulse 78 08/26/2019 9:57 AM CDT Temperature 36.6 C (97.8 F) 08/26/2019 9:57 AM CDT Respiratory Rate 16 08/26/2019 9:57 AM CDT Oxygen Saturation - - Inhaled Oxygen Concentration - - Weight 58.6 kg (129 lb 3.2 oz) 08/26/2019 9:57 AM CDT Height 170.2 cm (5' 7") 08/26/2019 9:57 AM CDT Body Mass Index 20.24 08/26/2019 9:57 AM CDT documented in this encounter Patient Instructions Patient InstructionsBassam Fierro MD - 08/26/2019 10:00 AM CDTThank you choosing the Interventional Pulmonary clinic at [facility]. Please let us know what we can do better by providing comments on the survey you will receive. We value your feedback! Here are some helpful general instructions: 1. If you have not already done so, we encourage you to sign up for [employer] as it is a very efficient way to contact the Pulmonary team for non-emergent questions / requests. 2. Labs can be performed / scheduled at the net front end developer. Results will be provided to you either through [employer] or a personal communication (letter or phone call) from our team. 3. Chest CT Scans will be performed at [facility] at [address] To make or confirm your appointment, please call [phone] Option 3. 4. Certain CTs can be performed at [facility], we will tell you if this is possible - To make or confirm your appointment, please call [phone]. 5. Please go to the net front end developer on your way out today to schedule your next appointment 6. If you are scheduled for a bronchoscopy you will receive a confirmation call from Brenda De Paz from Pulmonary. 7. If you have questions after your visit, please contact us in one of the following ways: ? For non-emergent questions / requests: [employer] message ? For appointments: ? For clinical matters: ; you will be asked to leave a message and our team will call you back as soon as possible, and definitely within 1-2 business day. ? Please note I am in the OR most days of the week and may be not be as prompt to reply to all your messages as I would like so be patient with me. ? For emergent clinical issues: please call 911 or go to the emergency room. ? To send in clinical records: please use the fax number at or send via [employer] ? Please see below for specific information related to your diagnosis or symptoms. ? CT, COVID testing 09/02 ? PET 09/02 ? BRONCH 09/07 ? QUIT SMOKING ? Start TRELEGY ONCE DAILY, PRN ALBUTEROL ? We appreciate the opportunity to take part in your care. Patient Education [facility] Learning About Benefits From Quitting Smoking How does quitting smoking make you healthier? If you're thinking about quitting smoking, you may have a few reasons to be smoke-free. Your health may be one of them. When you quit smoking, you lower your risks for cancer, lung disease, heart attack, stroke, bloodvessel disease, and blindness from macular degeneration. When you're smoke-free, you get sick less often, and you heal faster. You are less likely to get colds, flu, bronchitis, and pneumonia. As a nonsmoker, you may find that your mood is better and you are less stressed. When and how will you feel healthier? Quitting has real health benefits that start from day 1 of being smoke-free. And the longer you staysmoke-free, the healthier you get and the better you feel. The first hours After just 20 minutes, your blood pressure and heart rate go down. That means there's less stresson your heart and blood vessels. Within 12 hours, the level of carbon monoxide in your blood drops back to normal. That makes roomfor more oxygen. With more oxygen in your body, you may notice that you have more energy than when you smoked. After 2 weeks Your lungs start to work better. Your risk of heart attack starts to drop. After 1 month When your lungs are clear, you cough less and breathe deeper, so it's easier to be active. Your sense of taste and smell return. That means you can enjoy food more than you have since you started smoking. Over the years After 1 year, your risk of heart disease is half what it would be if you kept smoking. After 5 years, your risk of stroke starts to shrink. Within a few years after that, it's about the same as if you'd never smoked. After 10 years, your risk of dying from lung cancer is cut by about half. And your risk for many other types of cancer is lower too. How would quitting help others in your life? When you quit smoking, you improve the health of everyone who now breathes in your smoke. Their heart, lung, and cancer risks drop, much like yours. They are sick less. For babies and small children, living smoke-free means they're less likely tohave ear infections, pneumonia, and bronchitis. If you're a woman who is or will be someday, quitting smoking means a healthier . Children who are close to you are less likely to become adult smokers. Where can you learn more? Go to https://[email or web address].[email or web address]/MyChart Click on the magnifying glass tab, and enter O319 in the search box to learn more about "Learning About Benefits From Quitting Smoking." Current as of: September 10, 2018Content Version: 12.4 [employer]. Care instructions adapted under license by [facility]. If you have questions about amedical condition or this instruction, always ask your healthcare professional. [employer] disclaims any warranty or liability for your use of this information. documented in this encounter Progress Notes Bassam Fierro MD - 08/26/2019 10:00 AM CDT INTERVENTIONAL PULMONOLOGY Chief Complaint: lung mass History of Present Illness: Mr. Zhao is here for initial evaluation of lung mass. He is a 74 yo M with with severe eczema, COPD (untreated), found to have a kidney mass and through the workup was found to have a large lung mass. He notes chronic SOB/GARDNER, orthopnea, intermittent wheezing, dry intermittent cough. Slowly loosing weight, 5 lbs in the last few months. Loss of appetite. He denies any fevers, chills, or hemoptysis. There has not been any chest pain, syncope or lightheadedness. He denies any nocturnal respiratory symptoms. Notes anxiety over his diagnosis. The remainder of his 14 system review of systems are otherwise negative. Allergies: Pcn [penicillins] Current medications: Current Outpatient Medications Medication Sig Dispense Refill Multiple Vitamins-Minerals (MULTIVITAMIN MEN 50+ OR) Take 1 Tab by mouth daily. mupirocin (BACTROBAN) 2 % ointment Apply to wound twice a day 30 g 1 VERONICA-POLYCIN ophthalmic ointment 1 APPLICATION APPLY TO EYELIDS AT BEDTIME FOR ONE WEEK 0 triamcinolone (KENALOG) 0.1 % cream Apply to affected area on legs 2 times daily as needed for 2-4 weeks. Avoid face/groin/axillae. 80 g 1 No current facility-administered medications for this visit. 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 He lives with his family in home and notes chronicwater damage but denies evidence of mold. He denies owning any birds, a hot tub or feather bedding. 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 The patient denies ever having taking medications with known pulmonary toxicity including methotrexate, amiodarone or any chemotherapeutic agent. Social History Tobacco Use Smoking status: Current Every Day Smoker Packs/day: 2.00 Years: 50.00 Pack years: 100.00 Types: Cigarettes Smokeless tobacco: Never Used Tobacco comment: self cutting down to 0.75 Substance Use Topics Alcohol use: Yes Alcohol/week: 2.0 standard drinks Types: 1 Cans of beer, 1 Standard drinks or equivalent per week Frequency: Monthly or less Drinks per session: 1 or 2 Binge frequency: Never Drug use: Never E-Cigarettes E-Cigarette Use Never User Start Date Cartridges/Day Quit Date Physical examination: Vital signs: Blood pressure 116/70, pulse 78, temperature 97.8 F (36.6 C), temperature source Oral, resp. rate 16, height 5' 7" (1.702 m), weight 129 lb 3.2 oz (58.6 kg). SpO2 90 % on Room Air. He appears well and is in no acute distress. On HEENT exam, his mucus membranes are moist and his oropharynx is clear. He has no cervical lymphadenopathy, thyroid enlargement or thyroid nodules. On cardiovascular examination, he has a regular rate and rhythm with no murmurs, rubs or gallops with a normal S1 and S2. He has good respiratory effort with symmetric expansion and is clear to auscultation bilaterally. Percussion is normal. His abdomen is soft, non-tender and non-distended. On extremity exam, he has no clubbing, cyanosis or edema. He has no rashes, lesions or ulcers on examined portions of theskin. He is alert and orientated and his affect is normal. Data: Dr Lamar's notes reviewed Outside hospital records reviewed 07/23/2019 CT chest images and report reviewed, radiologist interpretation follows: A spiculated malignant mass is present in the left upper lobe. This extends from the left suprahilarregion superiorly to the anterior lateral pleural margin. This mass is 5 cm in length with a 2 x 2.5 cm cross-sectional dimension. A small subpleural nodule is present in the right lower lobe. No other significant mass or nodule in the lung parenchyma. Patient has emphysema changes that are mild and borderline bronchiectasis. The left upper lobe mass has an appearance more typical for primary malignancy of the lung rather than a metastatic lesion. 05/19/2019 TTE report reviewed, ict systems test engineer interpretation follows: Normal 2D and Doppler examination. 07/07/2017 CT Clear Lungs 02/23/2018 CXR report reviewed, radiologist interpretation follows: COPD with no acute cardiopulmonary findings. No significant changes since October 2016. Pulmonary Function Tests: Date: FVC FEV1 FEV1/FVC TLC DLCO 08/10/2019 1.84, 51% 0.64, 23% 34.59% 5.53, 85% 17.73, 78% 03/30/2014 3.93, 57% 2.88, 47% 74% 6.42, 126% Impression and Recommendations: Mr. Zhao is a 74 y.o. male current smoker with a history of severe eczema, COPD (untreated), foundto have a kidney mass who presents for evaluation of a large lung mass. # J CARLOS Lung Mass # Mediastinal Lymphadenopathy # Tobacco Abuse - lesion is highly suspicious for primary lung malignancy vs inflammatory/infectious - patient is very high risk given tobacco abuse history and presumed renal cancer - Tissue diagnosis and mediastinal staging are necessary. I recommended bronchoscopy with EBUS TBNA of suspicious nodes and NAVigation bronchoscopy of the J CARLOS lung mass. I explained the procedure in detail, including it's inherent risks. Mr. Zhao agrees to proceed and signed informed consent. I advised Mr. Zhao not to take anything by mouth after midnight the night prior to the procedure. He should, however, take his medications the morning of the procedure with sips of water. - Bronchoscopy Order Placed in [facility]. Consent scanned into [facility]. EKG @ [facility]. Labs CBC/BMP @ [facility]. Perioperative instructions provided to the patient in written form and reviewed in clinic. - Needs CT Chest for BRONCH GUIDANCE ONLY - Pre-operative covid19 testing ordered - Needs PET CT for whole body staging, ordered # COPD - Severe GOLD IV - very severe COPD - uncontrolled and symptomatic - start TRELEGY 1 puff once a day - PRN Albuterol - lengthy discussion with the patient and daughter about starting meds - watched videos on how to use medications # Tobacco Abuse - extensive counseling on the risks of continued smoking and benefits of quitting - education provided - patient will decide. I have discussed my findings and recommendations with the patient and have answered all of his questions. Additionally, I asked him to contact me if he does not hear back about any testing in order to obtain the results. documented in this encounter Plan of Treatment Date Type Specialty Care Team Description 10/19/2019 Office Visit Dermatology Amy Vital M D [address] [place] [address] 6th Floor, [address] [place], [place] [address] [phone] Name Type Priority Associated Diagnoses Order S chedule BRONCHOSCOPY Procedures Routine Lung nodule Expected: Mediastinal 09/08/2019, lymphadenopathy Expires: 08/25/2020 NOVEL 2019 Microbiology Routine Special screening 1 Occurren octavio CORONAVIRUS(COVID-1 examination for viral starting 9),BYRON disease 08/26/2019 unti l 02/25/2020 CT CHEST HIGH Imaging SARAH(<48 Hrs) Lung nodule 1 Occurrences RESOLUTION WO Mediastinal starting CONTRAST lymphadenopathy 08/26/2019 u ntil 08/25/2020 CT PET SKULL-BASE Imaging SARAH Lung nodule 1 Occurren octavio MID-THIGH ([id number]) starting 08/26/2019 unti l 08/25/2020 Health Maintenance Due Date Last Done Comments MEDICARE AWV (Initial) 06/08/2008 FALL SCREEN 07/05/2008 PNEUMOVAX >=65 (PPSV23) 07/05/2008 FLU VACCINE > 6 MONTHS 10/09/2019 TETANUS SHOT (ADULT) 07/04/2025 07/05/2015 documented as of this encounter Results Not on filedocumented in this encounter Visit Diagnoses Diagnosis Lung nodule - Primary Solitary pulmonary nodule Mediastinal lymphadenopathy Enlargement of lymph nodes Special screening examination for viral disease Special screening examination for unspec ified viral disease Stage 4 very severe COPD by GOLD classif ication (HCCode) Tobacco abuse Tobacco use disorder documented in this encounter Insurance Payer Benefit Plan / Subscriber ID Effective Dates Phone Addre ss Type Group MEDICARE MEDICARE PART A xxxxxxxxxxx 2008-Present [address] Medicare [place] [address] [employer] INDEMNITY/TRADIT xxxxxxxxxx 2015-Presen [address] Indemnity IONAL CHOICE - [place] [employer] [phone] documented as of this encounter
[2019-09-12] MEDS ORDERED: NA CHLORIDE 0.9% 1,000 ML ONE (08:13)
[2019-09-12 08:23] LABS: Absolute Lymphocytes (CBC) 0.7 K/uL (0.7-4.9); Basophils % 0.2 % (0-1.3); Hematocrit 44.3 % (39.6-49.0); Lymphocytes % 8.8 % (15.3-44.8); MPV 7.6 fL (7.6-11.3); RBC Red Blood Cell Count 5.29 M/uL (4.33-5.43)
[2019-09-12 08:34] LABS: ALT/SGPT 24 U/L (12-78); AST/SGOT 19 U/L (15-37); Albumin 3.6 g/dL (3.4-5.0); Alkaline Phosphatase 117 U/L (45-117); BUN Blood Urea Nitrogen 15 mg/dL (7-18); Bicarbonate 29 mmol/L (21-32); Bilirubin Direct < 0.1 mg/dL (0-0.2); Bilirubin Total 0.5 mg/dL (0.2-1.0); Glucose Level 97 mg/dL (74-106); Lipase 368 U/L (73-393); Potassium 4.2 mmol/L (3.5-5.1); Protein, Total 8.1 g/dL (6.4-8.2); Sodium Level 141 mmol/L (136-145)
[2019-09-12 09:05] LABS: Urine Bacteria <20 /HPF (NONE SEEN); Urine Culture Reflex Order NOT NEEDED; Urine RBC <5 /HPF (NONE SEEN)
[2019-09-12 09:06] LABS: Urine Blood NEGATIVE (NEG); Urine Glucose NEGATIVE (NEG); Urine Protein NEGATIVE (NEG); Urine pH 6.5 (5.0-7.0)
--- NOTE | 2019-09-12 09:08 | RAD REPORT ---
EXAM DESCRIPTION: CT - Abdomen Pelvis W Contrast - 09/12/2019 8:43 am CLINICAL HISTORY: Abd pain;Constipation, recent bronchoscopy, dysuria COMPARISON: Abdomen Pelvis W Contrast dated 06/23/2019; Abdomen Pelvis W Contrast dated 07/21/2017 Abdomen Pelvis W Contrast dated 06/23/2019; Abdomen Pelvis W Contrast dated 07/21/2017; Abdomen P massimo W/Wo Contrast dated 07/05/2019 TECHNIQUE: Biphasic, helical CT imaging of the abdomen and pelvis was performed following 100 ml non -ionic IV contrast. No oral contrast. All CT scans are performed using dose optimization technique as appropriate and may include automated exposure control or mA/KV adjustment according to patient size. FINDINGS: No pneumothorax, pleural effusion or acute lung base finding. The liver, spleen, and pancreas show no suspicious findings. Gallbladder and biliary tree are also wi thout suspicious finding. Heterogeneous enhancement of the mid and upper pole right renal parenchyma is present right renal fun ction is slightly delayed relative the left. In the upper pole of the right kidney a 3.2 centimeter c ystic mass is present. This has homogeneous fluid attenuation. This is slightly larger than the prior study. There is mild dilatation of the right collecting system and mild enhancement of the right ure teral wall. No obstructing calculus is seen. Left renal parenchyma enhances normally. No left-sided h ydronephrosis, mass or calcifications seen. Well filled urinary bladder shows no stone or mass. There is no wall thickening. Prominent, heterogeneous prostate gland with calcifications present. No adren al abnormalities. No stomach or small bowel acute finding. Stool is present filling but not dilating the entirety of th e colon. No colon wall thickening or mass identifiable. No free air or pneumatosis. Trace amount of free intraperitoneal fluid is present adjacent to the i nferior margin of the liver. No omental thickening. No hernia, mass or bulky lymphadenopathy. No suspicious bony findings. Concave contour to the T12 superior endplate has been previously seen. IMPRESSION: Pyelonephritis findings are evident in the superior right kidney recurrent from the Apri l examination is. Mild right-sided hydronephrosis and ureteritis findings. No stone is identified. Upper pole cystic ma ss at 3.2 cm measures larger than the Shanel studies. It is uncertain if this is a cyst or dilated belinda yx. Recurrent pyelonephritis is unusual in a male patient. A small obstructing mass occult on CT imaging would be a consideration. Stool fills but does not dilate the entirety of the colon. No colon wall thickening or mass.
--- NOTE | 2019-09-12 09:20 | ER ---
Nurse's Notes [facility] Name: Tahir Zhao Age: 74 yrs Sex: Male : 1945 Arrival Date: 09/12/2019 Time: 07:24 Bed 6 Private MD: Diagnosis: Constipation, unspecified;Urinary tract infection, site not specified-right sided pyelonephritis Presentation: 09/11 07:38 Chief complaint: Patient states: pt had a bronchoscopy on Fri and has been having sore sv throat since the procedure, painful urination, dysuria, and constipation since . Pt reports he is passing gas. Coronavirus screen: Proceed with normal triage. Patient reports a cough. Patient denies shortness of breath or difficulty breathing. Patient denies measured and/or subjective temperature greater than 100.4F prior to today's visit. Patient denies travel on a cruise ship or to a country the [facility] currently lists as an affected area. Patient denies contact with known and/or suspected case of COVID-19. Pt had a (-) COVID prior to procedure. Ebola Screen: No symptoms or risks identified at this time. Risk Assessment: Do you want to hurt yourself or someone else? Patient reports no desire to harm self or others. Onset of symptoms was September 08, 2019. 07:38 Method Of Arrival: Ambulatory sv 07:38 Acuity: [place] 3 sv 07:42 Initial Sepsis Screen: Does the patient meet any 2 criteria? No. Patient's initial sv sepsis screen is negative. Does the patient have a suspected source of infection? No. Patient's initial sepsis screen is negative. Triage Assessment: 07:43 General: Appears in no apparent distress. uncomfortable, Behavior is calm, cooperative, sv appropriate for age. Pain: Complains of pain in sore throat Pain currently is 3 out of 10 on a pain scale. EENT: Reports pain when swallowing. Neuro: Level of Consciousness is awake, alert, obeys commands, Oriented to person, place, time, situation, Gait is steady, Speech is normal. Respiratory: Airway is patent Respiratory effort is even, unlabored. : Reports pain with urination, penis. Historical: - Allergies: 07:41 PENICILLINS; sv - PMHx: 07:41 possible lung cancer; kidney growth; BPH; COPD; sv - PSHx: 07:41 None; sv - Immunization history:: Adult Immunizations up to date. - Social history:: Smoking status: Patient/guardian denies using tobacco. Screenin:10 Abuse screen: Denies threats or abuse. Denies injuries from another. Nutritional ph screening: No deficits noted. Tuberculosis screening: No symptoms or risk factors identified. Fall Risk No fall in past 12 months (0 pts). No secondary diagnosis (0 pts). IV access (20 points). Ambulatory Aid- None/Bed Rest/Nurse Assist (0 pts). Gait- Normal/Bed Rest/Wheelchair (0 pts) Mental Status- Oriented to own ability (0 pts). Total Daniels Fall Scale indicates No Risk (0-24 pts). Assessment: 08:08 General: Appears in no apparent distress. comfortable, slender, well groomed, Behavior ph is calm, cooperative, appropriate for age, Denies fever. Pain: Complains of pain in throat, recent bronchoscopy. Neuro: Level of Consciousness is awake, alert, obeys commands, Oriented to person, place, time, situation. Cardiovascular: Capillary refill < 3 seconds in bilateral fingers Patient's skin is warm and dry. Respiratory: Airway is patent Respiratory effort is even, unlabored, Respiratory pattern is regular, symmetrical. GI: No signs and/or symptoms were reported involving the gastrointestinal system. : Reports burning with urination, urinary frequency. Derm: Skin is intact, Skin is pink, warm \T\ dry. Musculoskeletal: Circulation, motion, and sensation intact. Range of motion: intact in all extremities. 09:30 Reassessment: Patient appears in no apparent distress at this time. Patient and/or ph family updated on plan of care and expected duration. Pain level reassessed. Patient is alert, oriented x 3, equal unlabored respirations, skin warm/dry/pink. Vital Signs: 07:42 BP 121 / 64; Pulse 66; Resp 17; Temp 98.3; Pulse Ox 94% ; Weight 56.7 kg; Height 5 ft. sv 7 in. (170.18 cm); Pain 3/10; 09:30 BP 118 / 78; Pulse 64; Resp 18; Temp 98.0; Pulse Ox 96% on R/A; ph 07:42 Body Mass Index 19.58 (56.70 kg, 170.18 cm) sv ED Course: 07:24 Patient arrived in ED. fj1 07:37 Mike Morel, [facility] is PHCP. pm1 07:37 Uche Montiel MD is Attending Physician. pm1 07:41 Triage completed. sv 07:42 Arm band placed on. sv 07:44 Mary Son, RN is Primary Nurse. ph 07:48 Patient has correct armband on for positive identification. Placed in gown. Bed in low sv position. 08:00 Initial lab(s) drawn, by me, sent to lab. Inserted saline lock: 20 gauge in left ph antecubital area, using aseptic technique. Blood collected. 08:43 CT Abd/Pelvis - IV Contrast Only In Process Unspecified. EDMS 08:43 CT completed. Patient tolerated procedure well. Patient moved back from CT. bq 10:04 No provider procedures requiring assistance completed. IV discontinued, intact, ph bleeding controlled, No redness/swelling at site. Pressure dressing applied. Administered Medications: 09:41 Not Given (Patient Refused): NS 0.9% 1000 ml IV at 1000 ml once ph 10:00 Drug: LevaQUIN 750 mg Route: PO; ph 10:02 Follow up: Response: No adverse reaction ph Outcome: 09:20 Discharge ordered by . pm1 10:04 Patient left the ED. ph 10:04 Discharged to home ambulatory. ph 10:04 Condition: good 10:04 Discharge instructions given to patient, Instructed on discharge instructions, follow up and referral plans. medication usage, Demonstrated understanding of instructions, follow-up care, medications, Prescriptions given X 2. Signatures: Dispatcher [employer] Fransisca Nagy RN RN Franchesca Fernando Mary Son RN RN Mike Morel, [employer] pm1 Lance Dasilva fj
--- NOTE | 2019-09-12 09:20 | EDPHYS ---
Physician Documentation [facility] Name: Tahir Zhao Age: 74 yrs Sex: Male : 1945 Arrival Date: 09/12/2019 Time: 07:24 Bed 6 Private MD: ED Physician Uche Montiel HPI: 09/11 07:56 This 74 yrs old Male presents to ER via Ambulatory with complaints of pm1 Constipation and Burning with Urination. 07:56 The patient presents with urinary symptoms, Burning with urination and constipation. pm1 Onset: The symptoms/episode began/occurred 5 day(s) ago. Modifying factors: The symptoms are alleviated by nothing, the symptoms are aggravated by Onset of urination. Associated signs and symptoms: Pertinent positives: able to pass gas, Pertinent negatives: abdominal pain, fever, nausea, vomiting. The patient has been recently seen by a physician: bronchoscopy on Friday with biopsy. Since the patient had a bronchoscopy on Friday for biospy of lung masses, he has not been able to have a bowel movement. He has been passing gas. Has a history of BPH. Reports frequent urination, once per hour with burning at onset of urination. No abdominal pain, flank pain, chest pain, or shortness of breath. Historical: - Allergies: 07:41 PENICILLINS; sv - PMHx: 07:41 possible lung cancer; kidney growth; BPH; COPD; sv - PSHx: 07:41 None; sv - Immunization history:: Adult Immunizations up to date. - Social history:: Smoking status: Patient/guardian denies using tobacco. ROS: 07:56 Constitutional: Negative for fever, chills, and weight loss, Eyes: Negative for injury, pm1 pain, redness, and discharge. 07:56 Neck: Negative for injury, pain, and swelling, Cardiovascular: Negative for chest pain, palpitations, and edema, Respiratory: Negative for shortness of breath, cough, wheezing, and pleuritic chest pain. 07:56 Back: Negative for injury and pain. 07:56 MS/Extremity: Negative for injury and deformity, Skin: Negative for injury, rash, and discoloration, Neuro: Negative for headache, weakness, numbness, tingling, and seizure. 07:56 ENT: Positive for sore throat, Negative for ear pain. 07:56 Abdomen/GI: Positive for constipation, Negative for abdominal pain, nausea and vomiting, diarrhea. 07:56 : Positive for urinary frequency, burning with urination, Negative for flank pain. Exam: 07:56 Constitutional: This is a well developed, well nourished patient who is awake, alert, pm1 and in no acute distress. Head/Face: Normocephalic, atraumatic. ENT: Nares patent. No nasal discharge, no septal abnormalities noted. Tympanic membranes are normal and external auditory canals are clear. Oropharynx with no redness, swelling, or masses, exudates, or evidence of obstruction, uvula midline. Mucous membranes moist. Neck: Trachea midline, no thyromegaly or masses palpated, and no cervical lymphadenopathy. Supple, full range of motion without nuchal rigidity, or vertebral point tenderness. No Meningismus. Chest/axilla: Normal chest wall appearance and motion. Nontender with no deformity. No lesions are appreciated. Cardiovascular: Regular rate and rhythm with a normal S1 and S2. No gallops, murmurs, or rubs. Normal PMI, no JVD. No pulse deficits. Respiratory: Lungs have equal breath sounds bilaterally, clear to auscultation and percussion. No rales, rhonchi or wheezes noted. No increased work of breathing, no retractions or nasal flaring. Abdomen/GI: Soft, non-tender, with normal bowel sounds. No distension or tympany. No guarding or rebound. No evidence of tenderness throughout. Back: No spinal tenderness. No costovertebral tenderness. Full range of motion. Skin: Warm, dry with normal turgor. Normal color with no rashes, no lesions, and no evidence of cellulitis. MS/ Extremity: Pulses equal, no cyanosis. Neurovascular intact. Full, normal range of motion. 07:56 Neuro: Exam negative for acute changes, Orientation: is normal, Mentation: is normal, Motor: is normal, moves all fours. Vital Signs: 07:42 BP 121 / 64; Pulse 66; Resp 17; Temp 98.3; Pulse Ox 94% ; Weight 56.7 kg; Height 5 ft. sv 7 in. (170.18 cm); Pain 3/10; 09:30 BP 118 / 78; Pulse 64; Resp 18; Temp 98.0; Pulse Ox 96% on R/A; ph 07:42 Body Mass Index 19.58 (56.70 kg, 170.18 cm) sv MDM: 07:37 Patient medically screened. pm1 09:15 ED course: Discussed lab and CT findings with Dr. Montiel. Patient has burning with pm1 urination. CT shows pyelonephritis. Urine micro is WNL. Recommends treatment with antibiotics. Will order urine culture. 09:17 Data reviewed: vital signs. Data interpreted: Pulse oximetry: on room air is 94 %. pm1 Interpretation: history of COPD. 09:17 Counseling: I had a detailed discussion with the patient and/or guardian regarding: the pm1 historical points, exam findings, and any diagnostic results supporting the discharge/admit diagnosis, lab results, radiology results, the need for outpatient follow up, a urologist, to return to the emergency department if symptoms worsen or persist or if there are any questions or concerns that arise at home. 09/11 07:39 Order name: Basic Metabolic Panel pm1 09/11 07:39 Order name: CBC with Diff pm1 09/11 07:39 Order name: Hepatic Function; Complete Time: 09:01 pm1 09/11 07:39 Order name: Lipase; Complete Time: 09:01 pm1 09/11 07:39 Order name: Urine Microscopic Only; Complete Time: 09:11 pm1 09/11 07:40 Order name: Basic Metabolic Panel; Complete Time: 09:01 EDMS 09/11 07:39 Order name: IV Saline Lock; Complete Time: 08:08 pm1 09/11 07:39 Order name: CT Abd/Pelvis - IV Contrast Only; Complete Time: 09:11 pm1 09/11 07:40 Order name: CBC with Automated Diff; Complete Time: 09:01 EDMS 09/11 08:32 Order name: Urine Dipstick--Ancillary (enter results); Complete Time: 09:11 ms 09/11 08:38 Order name: CREATININE WHOLE BLOOD; Complete Time: 09:01 EDMS 09/11 09:39 Order name: Urine Culture pm1 09/11 07:39 Order name: Labs collected and sent; Complete Time: 08:08 pm1 09/11 07:39 Order name: Urine Dipstick-Ancillary (obtain specimen); Complete Time: 19:20 pm1 Administered Medications: 09:41 Not Given (Patient Refused): NS 0.9% 1000 ml IV at 1000 ml once ph 10:00 Drug: LevaQUIN 750 mg Route: PO; ph 10:02 Follow up: Response: No adverse reaction ph Disposition: 09/12/19 09:20 Discharged to Home. Impression: Urinary tract infection, site not specified - right sided pyelonephritis, Constipation, unspecified. - Condition is Stable. - Discharge Instructions: Constipation, Adult, Pyelonephritis, Adult. - Prescriptions for Levaquin 750 mg Oral Tablet - take 1 tablet by ORAL route once daily for 5 days; 5 tablet. Lactulose 10 gram/15 mL Oral Solution - take 30 milliliter by ORAL route once daily; 300 milliliter. - Medication Reconciliation Form, Thank You Letter, Antibiotic Education, Prescription Opioid Use form. - Follow up: Emergency Department; When: As needed; Reason: Worsening of condition. Follow up: Private Physician; When: 2 - 3 days; Reason: Recheck today's complaints, Continuance of care, Re-evaluation by your physician. - Problem is new. - Symptoms have improved. Signatures: Dispatcher [employer] EDFransisca Villalba RN RN Mary Son RN RN ph iMke Morel, [employer] pm1 Corrections: (The following items were deleted from the chart) 10:04 09:20 09/12/2019 09:20 Discharged to Home. Impression: Urinary tract infection, site ph not specified - right sided pyelonephritisConstipation, unspecified. Condition is Stable. Forms are Medication Reconciliation Form, Thank You Letter, Antibiotic Education, Prescription Opioid Use. Follow up: Emergency Department; When: As needed; Reason: Worsening of condition. Follow up: Private Physician; When: 2 - 3 days; Reason: Recheck today's complaints, Continuance of care, Re-evaluation by your physician. Problem is new. Symptoms have improved. pm1
[2019-09-12] MEDS ORDERED: levoFLOXacin 750 MG TAB ONE (09:54)
[2019-09-12 10:11] VITALS: BP 121/64; TEMP 98.3; O2SAT 94
== END 2019-09-12 10:04 | disposition home or self-care (01) ==
LOC: ER 07:20
DX: N39.0 Urinary tract infection, site not specified (principal); N12 Tubulo-interstitial nephritis, not specified as acute or chronic; K59.00 Constipation, unspecified; N40.0 Benign prostatic hyperplasia without lower urinary tract symptoms; Z88.0 Allergy status to penicillin
CPT/HCPCS: 87088; 85025; 80048; 36415; 82565; 80076; 83690; 74177; 99284; Q9967; J7030; 81003; 81015; 87086

== ENCOUNTER 2019-09-16 09:52 | Observation (INO) | payer OTHER ==
[2019-09-16] MEDS ORDERED: PNEUMOCOCCAL VACCINE 0.5 ML IMVAC ONE (11:00)
[2019-09-16 12:08] VITALS: BMI 20.2
--- NOTE | 2019-09-16 15:03 | RAD REPORT ---
EXAM DESCRIPTION: CTAbdomen Pelvis W Contrast - 09/16/2019 2:38 pm CLINICAL HISTORY: Abdominal pain. COMPARE TO PREVIOUS ON 09/11 COMPARISON: Abdomen Pelvis W Contrast dated 09/12/2019; Abdomen Pelvis W Contrast dated 06/23/2019; Abdomen Pelvis W Contrast dated 07/21/2017; Abdomen Pelvis W/Wo Contrast dated 07/05/2019; Thorax Wo Con dated 07/23/2019 TECHNIQUE: Biphasic CT imaging of the abdomen and pelvis was performed with 100 ml non-ionic IV cont rast. All CT scans are performed using dose optimization technique as appropriate and may include automated exposure control or mA/KV adjustment according to patient size. FINDINGS: The lung bases are clear. The liver demonstrates no focal mass or biliary dilatation. The spleen, pancreas, adrenal glands and left kidney are normal. Dilatation of the right upper pole renal calyx is again seen. There is a mass noted adjacent to this region in the mid pole cortex of the medial aspect of the right kidney measuring 23 x 20 mm. No bowel obstruction, free air, free fluid or abscess. Moderate stool is retained throughout the colo n. The appendix is normal. Prostate gland is mildly enlarged with a Ricks catheter in place with the urinary bladder. Small fat containing left inguinal hernia. No evidence of significant lymphadenopath y. Moderate lumbosacral degenerative changes. IMPRESSION: 23 x 20 mm mass is noted in the medial midpole cortex of the right kidney with moderate dilatation of the right upper pole renal calyx, essentially unchanged since comparative study. The fo belinda renal mass is favored to be neoplastic in etiology.
--- NOTE | 2019-09-16 21:27 | P.SSS ---
Patient History Date of Service: 09/16/19 Reason for admission: CAN'T HAVE BM History of Present Illness: MR. CARVAJAL IS CACHECTIC, COPD PATIENT WHO IS A HEAVY SMOKER FOR YEARS COMES TO OFFICE HE DID NOT HAVE BM FOR DAYS. HE HAS TRIED ORAL MEDS AND FLEET ENEMA WITHOUT SUCCESS. HE ALSO URINARY RETENTION FROM CONSTIPATION AND HAD THOMAS BY DR. LAGUERRE. HE HAS RENAL MASS WITH PARTIAL OBSTRUCTION AND NEW NON SMALL CELL LUNG CANCER THAT IS POORLY DIFFERENTIATED IN THE PROCESS OF STAGING BY [facility]. HE AFTER SOAP SUDDS ENEMA HAD A LARGE BM TODAY. Allergies Penicillins Adverse Reaction (Verified 09/16/19 19:35) Nausea/Vomiting - Past Medical/Surgical History Has patient received pneumonia vaccine in the past: No Diabetic: No -: new found malignant tumor on the left lung. mass on right kidney -: bonchoscopy on 09/06/19 - Social History Smoking Status: Former smoker Alcohol use: No CD- Drugs: No Caffeine use: Yes Place of Residence: Home Review of Systems 10-point ROS is otherwise unremarkable Respiratory: Shortness of Breath (CHRONIC) Gastrointestinal: Constipation Physical Examination - Vital Signs Temperature: 97.3 F Blood Pressure: 110/67 Pulse: 66 Respirations: 18 Pulse Ox (%): 98 - Physical Exam General: Cachectic, Mild distress HEENT: Atraumatic, PERRLA, Mucous membr. moist/pink, EOMI, Sclerae nonicteric Neck: Supple, 2+ carotid pulse no bruit, No LAD, Without JVD or thyroid abnormality Respiratory: Diminished Cardiovascular: Regular rate/rhythm, Normal S1 S2 Gastrointestinal: Normal bowel sounds, No tenderness Musculoskeletal: No tenderness Integumentary: No rashes Neurological: Normal gait, Normal speech, Normal strength at 5/5 x4 extr, Normal tone, Normal affect Lymphatics: No axilla or inguinal lymphadenopathy - Diagnosis (Problem(s)) (1) Constipation Current Visit: Yes Status: Acute Plan: HE HAS IMPROVED WITH SOAP SUDDS ENEMA. HE IS TO CONTINUE MIRALAX AND MILK OF MAGNESIA DAILY OR PRN. CT SHOWS NO OBSTRUCTION. Qualifiers: Constipation type: chronic idiopathic constipation Qualified Code(s): K59.04 - Chronic idiopathic constipation (2) Non-small cell cancer of left lung Current Visit: Yes Status: Acute Plan: UPPER LOBE 5-2-2.5 CM. WITH SEVERE COPD AND POOR LUNG CAPACITY HE CARRIES A VERY POOR PROGNOSIS. IDEALLY HE SHOULD BE LEFT ALONE SURGERY, RADIATION AND CHEMO ALL ARE HIGH RISK. (3) Renal malignant neoplasm Current Visit: Yes Status: Acute Plan: WITH A NEW LUNG CANCER DIAGNOSIS, THIS SHOULD BE ALSO LEFT [place] OVERALL PROGNOSIS OF LUNG CANCER ITSELF IS POOR. HE GOES TO [facility] FOR HIS CARE. Qualifiers: Laterality: right Qualified Code(s): C64.1 - Malignant neoplasm of right kidney, except renal pelvis (4) COPD, severe Current Visit: Yes Status: Acute - Disposition Disposition: ROUTINE DISCHARGE
[2019-09-16 22:12] LABS: MPV 7.5 fL (7.6-11.3)
[2019-09-16 22:27] LABS: Platelet Estimate ND
[2019-09-17] MEDS ORDERED: ENOXAPARIN 40 MG/0.4 ML SQ SCH (09:00)
[2019-09-17 13:41] VITALS: BP 111/60; TEMP 98.6
== END 2019-09-17 14:09 | disposition home or self-care (01) ==
LOC: ERHOLD 09:52 → INTOOBSV 09:52 → 2ND 10:05
PROVIDERS: ADMIT Internal Medicine; ATTEND Internal Medicine
DX: K59.04 Chronic idiopathic constipation (principal); C34.90 Malignant neoplasm of unspecified part of unspecified bronchus or lung; C64.1 Malignant neoplasm of right kidney, except renal pelvis; J44.9 Chronic obstructive pulmonary disease, unspecified; R64 Cachexia; R33.9 Retention of urine, unspecified; Z87.891 Personal history of nicotine dependence
CPT/HCPCS: 36415; 85049; 74177; Q9967; G0379; G0378 ×3

== ENCOUNTER 2023-11-02 10:08 | Emergency (ER) | payer OTHER ==
--- OUTSIDE RECORDS SUMMARY | 2023-11-02 10:11 | XMS REPORT | Clinical Summary ---
Author Name Unknown Organization [facility] Address [address] [place] [address] Care Team Providers Care Photostat Operator Name Role Phone Bassam Fierro MD Unavailable [phone] Bipin Lamar MD Unavailable [phone] Antony Flores MD Unavailable [phone] Lenka Saavedra MD Primary Care Provider [phone] Courtney Henry MD Unavailable [phone] Fay Dennison MD Unavailable Caitlyn Garcia MD Unavailable Cal Willett MD PhD Unavailable [phone] Keegan Yanes MD Unavailable [email or web address] Allergies Active Allergy Reactions Criticality Noted Date Comments Penicillins Diarrhea,GI Intolerance,Other (See Comments) 06/22/1982 Upsets stomach Upsets stomach Stomach upset, diarrhea Medications Medication Sig Dispensed Refills Start Date End Date Status multivitamin with minerals tablet Take 1 tablet by mouth. Active mupirocin (BACTROBAN) 2% ointment Apply to wound twice a day 06/27/2018 Active triamcinolone (KENALOG) 0.1% cream Apply to affected area on legs 2 times daily as needed for 2-4 weeks. Avoid face/groin/axillae . 05/04/2019 Active fluticasone-umeclidi n-vilanter (Trelegy Ellipta) 100-62.5-25 mcg dsdv daily. 08/26/2019 Active polyethylene glycol (GLYCOLAX) 17 gram/dose powder as needed. 09/20/2019 Active cholecalciferol, vitamin D3, 25 mcg (1,000 unit) capsule Take 1,000 Units by mouth daily. 10/21/2019 Active ondansetron (Zofran ODT) 8 mg disintegrating tabletIndications:La rge cell carcinoma of upper lobe of left lung Dissolve 1 tablet (8 mg) on the tongue every 8 (eight) hours as needed for nausea. 30 tablet 3 11/24/2019 Active dexamethasone (DECADRON) 4 mg tabletIndications:La rge cell carcinoma of upper lobe of left lung Take 1 tablet (4 mg) PO BID for 3 days on days 2, 3 and 4 of each chemotherapy cycle. 18 tablet 1 11/24/2019 Active predniSONE (DELTASONE) 5 mg tablet Take 1 tablet by mouth daily. 11/14/2020 Active levothyroxine (SYNTHROID, LEVOTHROID) 112 mcg tablet Take 1 tablet by mouth daily. 03/21/2021 Active HYDROcodone-acetamin ophen (NORCO) 5 mg-325 mg per tablet Take 1 tablet by mouth as needed. 04/06/2021 Active acetaminophen (TYLENOL) 325 mg tablet Take 325 mg by mouth every 6 (six) hours as needed for mild pain. Active sarilumab (Kevzara) 150 mg/1.14 mL pnijIndications:Non- small cell lung cancer <Left side>,Multiple joint pain,Effects of immunotherapy Inject 150 mg under the skin every 14 (fourteen) days. 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 Remove & Discard patch within 12 hours or as directed by MD. Remove old patch(es) before replacing new patch(es). 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) 10/22/2018 Disorder of thyroid gland 06/22/2017 Overview: a little above range Emphysema 05/22/2014 Osteoporosis 06/22/2013 Arthritis 06/22/2013 Basal cell carcinoma of skin 05/22/2002 Eczema 05/22/2001 Hyperlipidemia 05/23/1999 Benign prostatic hyperplasia H/O: asbestos exposure Surgical History Surgery Date Site/Laterality Comments BRONCHOSCOPY 09/08/2019 biopsy SKIN CANCER EXCISION multiple BCC and SCC from different areas of the body Medical History Medical History Date Comments Hyperlipidemia 05/23/1999 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 Swallowing problem 05/22/2002 best guess Emphysema 05/22/2014 Chronic bronchitis 05/22/2014 Benign prostatic hyperplasia Osteoporosis 06/22/2013 Arthritis 06/22/2013 Disorder of thyroid gland 06/22/2017 a gabriel le above range - per patient no meds currently prescribed Eczema 05/22/2001 Basal cell carcinoma of skin 05/22/2002 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 I quit in 2013, and started again, now smoking up to 3/4 ppd Alcohol Use Standard Drinks/Week Comments Yes 1 (1 standard drink = 0.6 oz pur e alcohol) 1 beer per day Sex and Gender Information Value Date Recorded Sex Assigned at Male 10/04/2019 2:40 PM CDT Gender Identity Male 10/04/2019 2:40 PM CDT Sexual Orientation Straight 10/04/2019 2: 40 PM CDT Job Start Date Occupation Industry Not on file Not on file Not on file Obstetrics History Plan of Treatment Health Maintenance Due Date Last Done Comments COVID-19 Vaccine (#1) 07/05/1950 Pneumococcal Vaccine: 65+ Years (1 of 2 - PCV) 950 Influenza Vaccine 11/09/2023 Care Teams Photostat Operator Relationship Specialty Start Date End Date Bassam Fierro MD [address] [facility] 8[address] [place] [address] [email or web address] PCP - External Follow Up A 09/30/19 Bipin Lamar MD [address] [facility] [address] [place] [address] PCP - External Follow Up B Urology 09/30/19 Antony Flores MD [address] [place] [id number] [email or web address] PCP - External Primary Care Provider Internal Medicine 09/30/19 Lenka Saavedra MD [address] [place] [phone] [email or web address] [email or web address] - General Thoracic Medicine 10/04/19 Courtney Henry MD [address] [facility] [address] [place] [address] Hematology and Oncology 11/16/19 Fay Key MD [address] [facility] [address] [address] [email or web address] 12/09/19 Caitlyn Garcia MD [address] [place] [id number] [email or web address] Consulting Physician Pain Management 10/23/21 Cal Willett MD PhD [address] [place] [id number] [email or web address] Consulting Physician Radiation Oncology 10/09/21 Keegan Yanes MD [email or web address] Consulting Physician Rheumatology 10/12/21
[2023-11-02 11:17] LABS: SARS-CoV-2 Antigen CONTROL BLUE LINE VIS/BG OK; SARS-CoV-2 Antigen Rapid Res Negative (Negative)
[2023-11-02 11:31] LABS: Absolute Eosinophils 0.1 K/uL (0-0.5); Absolute Lymphocytes (CBC) 0.4 K/uL (0.7-4.9); Absolute Monocytes 0.1 K/uL (0.1-1.3); Absolute Neutrophil 9.5 K/uL (1.8-8.0); Basophils % 0.4 % (0-1.3); Eosinophils % 0.8 % (0-4.4); Hematocrit 30.5 % (39.6-49.0); Hemoglobin 9.4 g/dL (13.6-17.9); MCH 27.5 pg (27.0-35.0); MCHC 30.8 g/dL (32.0-36.0); MCV 89.2 fL (80-100); MPV 6.3 fL (7.6-11.3); Monocytes % 0.6 % (3.3-12.3); Neutrophils % 94.2 % (41.7-73.7); Platelets 438 thou/uL (152-406); RBC Red Blood Cell Count 3.42 M/uL (4.33-5.43); Red Cell Distribution Width 18.8 % (12.1-15.2)
[2023-11-02 11:35] LABS: PT Prothrombin Time 13.6 SECONDS (9.4-12.5); PTT, Activated Partial Thromb 29.2 SECONDS (24.3-36.9); Protime INR 1.22
[2023-11-02 11:47] LABS: Albumin 2.3 g/dL (3.4-5.0); Albumin/Globulin Ratio 0.5 (1.1-1.8); Anion Gap 6.3 mEq/L (5.0-15.0); Bilirubin Total 0.4 mg/dL (0.2-1.0); Globulin 5.1 g/dL (2.3-3.5); Potassium 4.3 mEq/L (3.5-5.1); Protein, Total 7.4 g/dL (6.4-8.2); Troponin High Sensitivity 4.4 pg/mL (<58.9)
[2023-11-02 11:58] LABS: Blood Morphology Comment NOT SEEN (NOT SEEN); Platelet Estimate ADEQ; White Blood Cell Scan OK (OK)
--- NOTE | 2023-11-02 12:09 | RAD REPORT ---
EXAM DESCRIPTION: RAD - Chest Pa And Lat (2 Views) - 11/02/2023 11:57 am CLINICAL HISTORY: COUGH COMPARISON: Chest Single View dated 06/05/2022; Chest Single View dated 06/02/2022; Chest Pa And Lat ( 2 Views) dated 02/22/2021; Chest Pa And Lat (2 Views) dated 02/23/2018 TECHNIQUE: PA and lateral views of the chest were obtained. FINDINGS: Background chronic interstitial changes and probable scarring in the peripheral right lowe r lung. Progressive patchy right mid to lower lung airspace opacity. Small component of effusion. Hea rt size is normal and central vasculature is within normal limits. No left pleural effusion. No pneum othorax seen. No acute bony finding noted. IMPRESSION: Progressive right mid to lower lung airspace opacity with small effusion component, conc erning for pneumonia. Chronic background changes as above, may reflect underlying COPD.
[2023-11-02 12:27] LABS: Specific Gravity 1.023 (1.005-1.030); Sqamous Epithelial None Seen /HPF (None Seen); Urine Bacteria None Seen /HPF (<20); Urine Bilirubin NEGATIVE (Negative); Urine Blood Negative (Negative); Urine Clarity Turbid (Clear); Urine Color Light-Yellow (Yellow); Urine Culture Reflex Order NOT NEEDED; Urine Glucose NEGATIVE (Negative); Urine Ketones NEGATIVE (Negative); Urine Microscopic Reflex YN ORDER UMIC; Urine Mucus Slight /HPF (None Seen); Urine Nitrite NEGATIVE (Negative); Urine Protein 1+ (Negative); Urine RBC None Seen /HPF (None Seen); Urine Urobilinogen Normal (Normal); Urine WBC <5 /HPF (<5); Urine pH 5.5 (5.0-7.0)
[2023-11-02] MEDS ORDERED: NA CHLORIDE 0.9% 50 ML ONE (12:27)
[2023-11-02] MEDS ORDERED: IPRATROPIUM BROM 0.5MG/2.5ML ONE (12:27)
[2023-11-02] MEDS ORDERED: ALBUTEROL 2.5 MG/3 ML NEB SOL ONE (12:27)
[2023-11-02] MEDS ORDERED: CEFTRIAXONE 1000 MG/VIAL ONE (12:27)
--- NOTE | 2023-11-02 13:34 | EDPHYS ---
Physician Documentation [facility] Name: Tahir Zhao Age: 78 yrs Sex: Male : 1945 Arrival Date: 11/02/2023 Time: 10:08 Bed 4 Private MD: ED Physician Franissca Cardoza HPI: 11/01 10:45 This 78 yrs old Male presents to ER via Ambulatory with complaints of Fever. cp 10:45 The patient reports fever, that was measured at 100.6 degrees Fahrenheit. Onset: The cp symptoms/episode began/occurred 3 week(s) ago. Associated signs and symptoms: Pertinent positives: cough. 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 - Infectious Disease History:: Denies. - Social history:: Smoking status: Patient denies any tobacco usage or history of. ROS: 10:50 Constitutional: Positive for body aches, fever, cp 10:50 Eyes: Negative for injury, pain, redness, and discharge, cp 10:50 ENT: Negative for drainage from ear(s), ear pain, difficulty swallowing, difficulty handling secretions, 10:50 Cardiovascular: Positive for chest pain, with cough, 10:50 Respiratory: Positive for cough, wheezing, 10:50 Abdomen/GI: Negative for abdominal pain, vomiting, diarrhea, constipation, 10:50 Skin: Negative for rash, 10:50 Neuro: Negative for altered mental status, 10:50 All other systems are negative, Exam: 10:50 Head/Face: Normocephalic, atraumatic. cp 10:50 Constitutional: The patient appears in no acute distress, alert, awake, non-diaphoretic, non-toxic, well developed, well nourished, uncomfortable, 10:50 Eyes: Periorbital structures: appear normal, Conjunctiva: normal, no exudate, no injection, Sclera: no appreciated abnormality, Lids and lashes: appear normal, bilaterally, 10:50 ENT: External ear(s): are unremarkable, Nose: is normal, Mouth: Lips: moist, Oral mucosa: pink and intact, moist, Posterior pharynx: Airway: no evidence of obstruction, patent, 10:50 Chest/axilla: Inspection: normal, 10:50 Cardiovascular: Rate: tachycardic, Rhythm: regular, 10:50 Respiratory: the patient does not display signs of respiratory distress, Respirations: labored breathing, that is mild, Breath sounds: decreased breath sounds, that are moderate, throughout, wheezing: that is mild, is heard diffusely, 10:50 Abdomen/GI: Inspection: abdomen appears normal, Palpation: abdomen is soft and non-tender, in all quadrants, 10:50 Back: pain, is absent, ROM is normal, 10:50 Skin: no rash present. 10:50 Neuro: Orientation: to person, place \T\ time. Mentation: is normal, Motor: moves all fours, no focal deficits, Gait: is steady, Vital Signs: 10:26 BP 110 / 64; Pulse 105; Resp 20 S; Temp 98.6(O); Pulse Ox 97% on R/A; Weight 61.23 kg aa5 (R); Height 5 ft. 3 in. (R); 10:30 Pulse Ox 88% on R/A; kc6 11:24 BP 98 / 69; Pulse 97; Resp 20 S; Pulse Ox 95% on 2.5 lpm NC; kc6 12:07 BP 100 / 64; Pulse 98; Resp 19 S; Temp 98.2(O); Pulse Ox 96% on 2.5 lpm NC; kc6 13:33 BP 102 / 65; Pulse 101; Resp 19 S; Pulse Ox 90% on R/A; kc6 10:26 Body Mass Index 23.91 (61.23 kg, 160.02 cm) aa5 MDM: 10:24 Patient medically screened. 13:30 Data reviewed: vital signs, nurses notes, lab test result(s), EKG, radiologic studies, cp plain films. 13:30 I considered the following discharge prescriptions or medication management in the emergency department Medications were administered in the Emergency Department. See MAR. Refusal of service: The patient/guardian displays adequate decision making capability and despite a detailed discussion of alternatives, benefits, risks, and consequences refuses: Admission to the hospital for further work-up and treatment. ED course: discussed concern for low oxygen sats and recommending admission, patient declines at this time and requests discharge. 11/01 10:42 Order name: Blood Culture Adult (2) 11/01 10:42 Order name: CBC with Diff; Complete Time: 12:13 11/01 12:13 Interpretation: Normal except: RBC 3.42; HGB 9.4; HCT 30.5; MCHC 30.8; PLT 438; RDW cp 18.8; MPV 6.3; MARIA VICTORIA% 94.2; LYM% 4.0; NEUT A 9.5; LYMA 0.4; MN% 0.6. 11/01 10:42 Order name: CMP; Complete Time: 12:13 11/01 12:14 Interpretation: Normal except: BUN 28; GFR 59; CA 8.4; ALB 2.3; GLOB 5.1; A/G 0.5. 11/01 10:42 Order name: Lactate w/ 2H reflex if indic.; Complete Time: 12:13 11/01 12:15 Interpretation: Reviewed. 11/01 10:42 Order name: Protime (+inr); Complete Time: 12:13 11/01 12:14 Interpretation: Reviewed. 11/01 10:42 Order name: Ptt, Activated; Complete Time: 12:13 11/01 10:42 Order name: Urinalysis w/ reflexes; Complete Time: 13:32 11/01 10:42 Order name: Troponin HS; Complete Time: 12:13 11/01 10:42 Order name: SARS RAPID; Complete Time: 12:13 11/01 10:42 Order name: Influenza Screen (a \T\ B); Complete Time: 12:13 11/01 10:42 Order name: Strep 11/01 11:25 Order name: Throat Culture EDFL 11/01 11:35 Order name: CBC Smear Scan; Complete Time: 12:13 [facility] 11/01 10:42 Order name: XRAY Chest Pa And Lat (2 Views); Complete Time: 12:13 11/01 10:42 Order name: Accucheck; Complete Time: 11:15 11/01 10:42 Order name: Cardiac monitoring; Complete Time: 10:55 11/01 10:42 Order name: EKG - Nurse/Tech; Complete Time: 10:55 cp 11/01 10:42 Order name: IV Saline Lock - Large Bore; Complete Time: 11:15 cp 11/01 10:42 Order name: Labs collected and sent; Complete Time: 11:15 cp 11/01 10:42 Order name: O2 Per Protocol; Complete Time: 10:55 cp 11/01 10:42 Order name: O2 Sat Monitoring; Complete Time: 10:55 cp 11/01 10:42 Order name: Vital Signs; Complete Time: 10:55 cp Administered Medications: 12:35 Drug: DuoNeb Nebulize (2.5 mg - 0.5 mg) 3 ml Nebulizer once Route: Nebulizer; kc6 13:34 Follow up: Response: No adverse reaction kc6 12:35 Drug: Rocephin IV 1 grams IV at calculated rate once; Given slow IV push per pharmacy kc6 instructions Route: IV; Rate: calculated rate; Site: left antecubital; 13:34 Follow up: Response: No adverse reaction; IV Status: Completed infusion; IV Intake: [id number] 13:38 Not Given (Physician Discretion): azithromycin1 grams PO once kc6 13:45 Drug: AZITHromycin PO 500 mg PO once Route: PO; kc6 Disposition Summary: 11/02/23 13:33 Discharge Ordered Notes: Location: Home cp Problem: new cp Symptoms: have improved cp Condition: Stable cp Diagnosis - Pneumonia, unspecified organism cp - Hypoxemia cp - Constipation cp Followup: cp - With: Antony Flores MD - When: 2 - 3 days - Reason: Recheck today's complaints Discharge Instructions: - Discharge Summary Sheet cp - Constipation, Adult cp - Community-Acquired Pneumonia, Adult cp - How to Use a Nebulizer, Adult cp Forms: - Medication Reconciliation Form cp - Antibiotic Education cp - Prescription Opioid Use cp - Patient Portal Instructions cp - Leadership Thank You Letter cp Prescriptions: - cefdinir 250 mg/5 mL Oral Suspension for Reconstitution - take 6 milliliter ORAL route every 12 hours for 10 days; 120 milliliter; cp Refills: 0, Product Selection Permitted - Miralax 17 gram Oral powder in packet - take 1 packet ORAL route daily as needed for constipation; 30 packet; Refills: cp 0, Product Selection Permitted - NEBULIZER MACHINE - nebulize 1 ampule NEBULIZATION route 4 times per day As needed; 1 unit; cp Refills: 0, Product Selection Permitted - Zithromax 200 mg/5 ml Oral Suspension for Reconstitution - take 12.5 milliliter ORAL route one time for 1 day then take 7 ml daily for cp days 2-5; 41 milliliter; Refills: 0, Product Selection Permitted - Albuterol Sulfate 2.5 mg /3 mL (0.083 %) Inhalation Solution for Nebulization - inhale 1 unit NEBULIZATION route every 8 hours As needed; 1 unit; Refills: 0, cp Product Selection Permitted Signatures: Dispatcher [employer] EDMS Lyudmila Alvarez, RN RN aa5 Renaldo Gibbons PA PA Joanne Paulino RN RN kc6 Corrections: (The following items were deleted from the chart) 10:27 10:26 PMHx: lung cancer mets to spine; aa5 aa5 10:27 10:26 PMHx: Raynaud's syndrome (lung cancer mets to spine); aa5 aa5 10:43 10:43 BLOOD CULTURE*+BA.LAB.BRZ ordered. EDMS EDMS 10:43 10:43 CBC+H.LAB.BRZ ordered. EDMS EDMS 10:43 10:43 COMPREHENSIVE METABOLIC PANEL+C.LAB.BRZ ordered. EDMS EDMS 10:43 10:43 LACTATE+C.LAB.BRZ ordered. EDMS EDMS 10:43 10:43 PROTIME (+INR)+COAG.LAB.BRZ ordered. EDMS EDMS 10:43 10:43 PTT, ACTIVATED+COAG.LAB.BRZ ordered. EDMS EDMS 10:43 10:43 Urinalysis+U.LAB.BRZ ordered. EDMS EDMS 10:43 10:43 Troponin High Sensitivity+C.LAB.BRZ ordered. EDMS EDMS 10:43 10:43 SARS-COV-2 Antigen Rapid+I.LAB.BRZ ordered. EDMS EDMS 10:43 10:43 Influenza Screen (A \T\ B)+BA.LAB.BRZ ordered. EDMS EDMS 10:43 10:43 Group A Streptococcus Rapid Sc+BA.LAB.BRZ ordered. EDMS EDMS 11/02 13:55 13:54 This 78 yrs old Male presents to ER via Ambulatory with complaints of Fever. cp cp 13:55 08/25 10:45 The patient reports fever, that was measured at 100.1 degrees Fahrenheit, cpcp 11/02 13:55 11/01 10:45 Onset: The symptoms/episode began/occurred 2 day(s) ago, cp cp
--- NOTE | 2023-11-02 13:34 | ER ---
Nurse's Notes [facility] Name: Tahir Zhao Age: 78 yrs Sex: Male : 1945 Arrival Date: 11/02/2023 Time: 10:08 Bed 4 Private MD: Diagnosis: Pneumonia, unspecified organism;Hypoxemia;Constipation Presentation: 11/01 10:26 Chief complaint: Patient states: "I've had cough and wheezing for about 3 weeks". Pt aa5 reports fever up to 100.6*F since yesterday. 10:26 Coronavirus screen: cough unrelated to allergies. Ebola Screen: Patient denies travel aa5 to an Ebola-affected area in the 21 days before illness onset. Initial Sepsis Screen: Does the patient meet any 2 criteria? HR > 90 bpm. Does the patient have a suspected source of infection? No. Patient's initial sepsis screen is negative. Risk Assessment: Do you want to hurt yourself or someone else? Patient reports no desire to harm self or others. Onset of symptoms was October 2023. 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 - Infectious Disease History:: Denies. - Social history:: Smoking status: Patient denies any tobacco usage or history of. Screenin:30 [facility] ED Fall Risk Assessment (Adult) History of falling in the last 3 months, kc6 including since admission No falls in past 3 months (0 pts) Confusion or Disorientation No (0 pts) Intoxicated or Sedated No (0 pts) Impaired Gait No (0 pts) Mobility Assist Device Used No (0 pt) Altered Elimination No (0 pt) Score/Fall Risk Level 0 - 2 = Low Risk. Abuse screen: Denies threats or abuse. Denies injuries from another. Nutritional screening: No deficits noted. Tuberculosis screening: No symptoms or risk factors identified. Assessment: 10:30 General: Appears in no apparent distress. comfortable, well groomed, well developed, kc6 Behavior is calm, cooperative, appropriate for age, Reports fever for 12-24 hours. Pain: Complains of pain in chest. Neuro: Level of Consciousness is awake, alert, obeys commands, Oriented to person, place, time, situation, Appropriate for age. Cardiovascular: Capillary refill < 3 seconds. Respiratory: Reports cough that is Airway is patent Trachea midline Respiratory effort is even, unlabored, Respiratory pattern is regular, symmetrical, Breath sounds with wheezes bilaterally. GI: No signs and/or symptoms were reported involving the gastrointestinal system. : No signs and/or symptoms were reported regarding the genitourinary system. EENT: No signs and/or symptoms were reported regarding the EENT system. Derm: No signs and/or symptoms reported regarding the dermatologic system. Skin is intact, is healthy with good turgor, Skin is pink, warm \\T\\ dry. Musculoskeletal: No signs and/or symptoms reported regarding the musculoskeletal system. Circulation, motion, and sensation intact. Capillary refill < 3 seconds, Range of motion: intact in all extremities. 11:30 Reassessment: Patient appears in no apparent distress at this time. No changes from kc6 previously documented assessment. Patient and/or family updated on plan of care and expected duration. Pain level reassessed. Patient is alert, oriented x 3, equal unlabored respirations, skin warm/dry/pink. 12:30 Reassessment: Patient appears in no apparent distress at this time. No changes from kc6 previously documented assessment. Patient and/or family updated on plan of care and expected duration. Pain level reassessed. Patient is alert, oriented x 3, equal unlabored respirations, skin warm/dry/pink. 13:33 Reassessment: Patient appears in no apparent distress at this time. No changes from kc6 previously documented assessment. Patient and/or family updated on plan of care and expected duration. Pain level reassessed. Patient is alert, oriented x 3, equal unlabored respirations, skin warm/dry/pink. 13:35 Reassessment: pt states he would like to go home vs being admitted. states he will kc6 monitor his SPO2 a home and call EMS if things get worse. SHY Benz made aware. Vital Signs: 10:26 BP 110 / 64; Pulse 105; Resp 20 S; Temp 98.6(O); Pulse Ox 97% on R/A; Weight 61.23 kg aa5 (R); Height 5 ft. 3 in. (R); 10:30 Pulse Ox 88% on R/A; kc6 11:24 BP 98 / 69; Pulse 97; Resp 20 S; Pulse Ox 95% on 2.5 lpm NC; kc6 12:07 BP 100 / 64; Pulse 98; Resp 19 S; Temp 98.2(O); Pulse Ox 96% on 2.5 lpm NC; kc6 13:33 BP 102 / 65; Pulse 101; Resp 19 S; Pulse Ox 90% on R/A; kc6 10:26 Body Mass Index 23.91 (61.23 kg, 160.02 cm) aa5 ED Course: 10:10 Patient arrived in ED. mr 10:24 Renaldo Gibbons PA is PHCP. cp 10:24 Fransisca Cardoza MD is Attending Physician. cp 10:26 Arm band placed on. aa5 10:30 Triage completed. aa5 10:30 Patient has correct armband on for positive identification. Bed in low position. Call kc6 light in reach. Side rails up X 1. Adult w/ patient. construction estimator on. Pulse ox on. NIBP on. Door closed. Noise minimized. Lights dimmed. Warm blanket given. Pillow given. 10:44 Joanne Dover, JERI is Primary Nurse. kc6 10:55 Strep Sent. kc6 10:55 Influenza Screen (a \\T\\ B) Sent. kc6 10:55 SARS RAPID Sent. kc6 11:18 Initial lab(s) drawn, by pr, sent to lab. First set of blood cultures drawn by pr, cc6 Second set of blood cultures drawn by pr. 11:26 Inserted saline lock: 20 gauge in left antecubital area, using aseptic technique. Blood cc6 collected. Flushed with 10 mL NS. 11:59 XRAY Chest Pa And Lat (2 Views) In Process Unspecified. EDMS 12:07 Assisted to bathroom. kc6 12:07 Urinalysis w/ reflexes Sent. kc6 13:32 Antony Florse MD is Referral Physician. cp 13:56 No provider procedures requiring assistance completed. IV discontinued, intact, kc6 bleeding controlled, No redness/swelling at site. Pressure dressing applied. Administered Medications: 12:35 Drug: DuoNeb Nebulize (2.5 mg - 0.5 mg) 3 ml Nebulizer once Route: Nebulizer; kc6 13:34 Follow up: Response: No adverse reaction kc6 12:35 Drug: Rocephin IV 1 grams IV at calculated rate once; Given slow IV push per pharmacy kc6 instructions Route: IV; Rate: calculated rate; Site: left antecubital; 13:34 Follow up: Response: No adverse reaction; IV Status: Completed infusion; IV Intake: [id number] 13:38 Not Given (Physician Discretion): azithromycin1 grams PO once kc6 13:45 Drug: AZITHromycin PO 500 mg PO once Route: PO; kc6 Medication: 13:58 VIS not applicable for this client. kc6 Intake: 13:34 IV: 50ml; Total: 50ml. kc6 Outcome: 13:33 Discharge ordered by MD. cp 13:58 Discharged to home ambulatory, with significant other, kc6 13:58 Condition: stable 13:58 Discharge instructions given to patient, significant other, Instructed on discharge instructions, follow up and referral plans. medication usage, Demonstrated understanding of instructions, follow-up care, medications, Prescriptions given X 5 13:59 Patient left the ED. kc6 Signatures: Dispatcher [employer] EDMS Debbie Wiggins, Kevin Brown mr Lyudmila Alvarez, RN RN aa5 Renaldo Gibbons PA PA Joanne Paulino RN RN kc6 Inessa Mobley cc6 Corrections: (The following items were deleted from the chart) 10:27 10:26 PMHx: lung cancer mets to spine; aa5 aa5 10:27 10:26 PMHx: Raynaud's syndrome (lung cancer mets to spine); aa5 aa5
[2023-11-02] MEDS ORDERED: AZITHROMYCIN 250 MG TAB ONE (13:38)
[2023-11-02 14:09] VITALS: TEMP 98.2
[2023-11-02 14:11] VITALS: BP 102/65; O2SAT 90
--- NOTE | 2023-11-04 12:45 | EKG ---
Test Date: 2023-11-02 Test Time: 10:52:14 Caramel Coloring Operator: MEGAN MEASUREMENT RESULTS: Intervals: Rate: 97 CA: 144 QRSD: 132 QT: 376 QTc: 477 [place]: P: 59 CA: 144 QRS: 102 T: 47 INTERPRETIVE STATEMENTS: Normal sinus rhythm Right bundle branch block Abnormal ECG Compared to ECG 06/02/2022 18:59:06 Right bundle-branch block now present Right-axis deviation no longer present Myocardial infarct finding no longer present Electronically Signed On 11-04-23 12:42:20 CDT by Nik Ellis
== END 2023-11-02 13:59 | disposition home or self-care (01) ==
LOC: ER 10:08
DX: J18.9 Pneumonia, unspecified organism (principal); R09.02 Hypoxemia; K59.00 Constipation, unspecified; J44.9 Chronic obstructive pulmonary disease, unspecified; Z85.118 Personal history of other malignant neoplasm of bronchus and lung; Z11.52 Encounter for screening for COVID-19
CPT/HCPCS: 96365; 87040 ×2; 87070; 85025; 81001; 36415; 85610; 87081; 83605; 85730; 84484; 80053; 87804 ×2; 71046; 99285; 87811; J7613; J7644; J0696; 93005

== ENCOUNTER 2023-11-12 16:19 | Observation (INO) | payer OTHER ==
--- OUTSIDE RECORDS SUMMARY | 2023-11-12 16:25 | XMS REPORT | Clinical Summary ---
Author Name Unknown Organization [facility] Address [address] [place] [address] Care Team Providers Care Oracle Apex Developer Name Role Phone Bassam Fierro MD Unavailable [phone] Bipin Lamar MD Unavailable [phone] Antony Flores MD Unavailable [phone] Lenka Saavedra MD Primary Care Provider [phone] Courtney Henry MD Unavailable [phone] Fay Dennison MD Unavailable Caitlyn Garcia MD Unavailable Cal Willett MD PhD Unavailable Keegan Yanes MD Unavailable [email or web address] Allergies Active Allergy Reactions Criticality Noted Date [...] Years (1 of 2 - PCV) 950 Retired Influenza Vaccine 11/09/2023 Care Teams Oracle Apex Developer Relationship Specialty Start Date End Date Bassam Fierro MD [address] [facility] 8[address] [place] [address] [email or web address] PCP - External Follow Up A 09/30/19 Bipin Lamar MD [address] [address] PCP - External Follow Up B Urology 09/30/19 Antony Flores MD [address] [place] [id number] [email or web address] PCP - External Primary Care Provider Internal Medicine 09/30/19 Lenka Saavedra MD [address] [place] [id number] [email or web address] PCP - General Thoracic Medicine 10/04/19 Courtney Henry MD [address] [facility] [address] [place] [address] Hematology and Oncology 11/16/19 Fay Key MD [address] [facility] [place] [address] [email or web address] 12/09/19 Caitlyn Garcia MD [address] [place] [phone] [email or web address] Consulting Physician Pain Management 10/23/21 Cal Willett MD PhD [address] [place] [phone] [email or web address] Consulting Physician Radiation Oncology 10/09/21 Keegan Yanes MD [email or web address] Consulting Physician Rheumatology 10/12/21
[2023-11-12 16:47] VITALS: BMI 24.3
[2023-11-12] MEDS ORDERED: DIPHENHYDRAMINE 25 MG TAB/CAP PO PRN (16:59)
[2023-11-12] MEDS ORDERED: ONDANSETRON 4 MG/2 ML VIAL IV PRN (17:00)
[2023-11-12] MEDS ORDERED: ACETAMINOPHEN 325 MG TABLET PO PRN (17:04)
--- NOTE | 2023-11-12 17:46 | RAD REPORT ---
EXAM DESCRIPTION: Benyt Single View11/12/2023 5:14 pm CLINICAL HISTORY: Chest pain COMPARISON: November 02, 2023 FINDINGS: Right basilar opacity representing a combination pleural effusion mass may have minimally worsened. Small bilateral lung nodules unchanged Heart is borderline enlarged
[2023-11-12 18:23] LABS: PT Prothrombin Time 12.8 SECONDS (9.4-12.5); Protime INR 1.15
[2023-11-12] MEDS: ENOXAPARIN 40 MG/0.4 ML SQ SCH (18:27)
[2023-11-12 18:38] LABS: ALT/SGPT 22 U/L (16-61); AST/SGOT 26 U/L (15-37); Albumin 2.3 g/dL (3.4-5.0); Albumin/Globulin Ratio 0.5 (1.1-1.8); Alkaline Phosphatase 82 U/L (45-117); Bilirubin Total 0.2 mg/dL (0.2-1.0); Globulin 4.9 g/dL (2.3-3.5); Protein, Total 7.2 g/dL (6.4-8.2)
[2023-11-12 18:49] LABS: Bilirubin Direct < 0.2 mg/dL (0-0.2)
[2023-11-12] MEDS: NACHLORIDE 0.45% 1,000 ML IV SCH (19:19)
[2023-11-12] MEDS: POLYETHYL GLY 3350 17 GM/DOSE PO SCH (19:19)
[2023-11-12 21:28] LABS: Anion Gap 10.6 mEq/L (5.0-15.0); BUN Blood Urea Nitrogen 22 mg/dL (7-18); Bicarbonate 29 mEq/L (21-32); Glomerular Filtration Rate 65 ml/min (=/>90); Glucose Level 72 mg/dL (74-106); Potassium 4.6 mEq/L (3.5-5.1); Sodium Level 138 mEq/L (136-145)
[2023-11-12 21:58] LABS: Absolute Eosinophils 0.3 K/uL (0-0.5); Absolute Lymphocytes (CBC) 0.5 K/uL (0.7-4.9); Absolute Monocytes 0.7 K/uL (0.1-1.3); Basophils % 0.2 % (0-1.3); Eosinophils % 3.7 % (0-4.4); Hemoglobin 9.2 g/dL (13.6-17.9); Lymphocytes % 6.7 % (15.3-44.8); MCH 28.6 pg (27.0-35.0); MCHC 31.6 g/dL (32.0-36.0); MCV 90.5 fL (80-100); MPV 6.7 fL (7.6-11.3); Monocytes % 8.8 % (3.3-12.3); Neutrophils % 80.6 % (41.7-73.7); Platelets 313 thou/uL (152-406); Red Cell Distribution Width 18.9 % (12.1-15.2)
[2023-11-12 23:08] LABS: Band Neutrophils 11 % (0-1); Blood Morphology Comment NOT SEEN (NOT SEEN); Differential Total Cells Count 100; Eosinophils 5 % (0-3); Lymphocytes 7 % (15-42); Monocytes 8 % (0-10); Platelet Estimate ADEQ; Reactive Lymphocytes 7 %; Segmented Neutrophils 62 % (40-80)
[2023-11-13] MEDS: ALBUTEROL 2.5 MG/3 ML NEB SOL NEB SCH (01:03)
[2023-11-13 05:16] LABS: Absolute Eosinophils 0.3 K/uL (0-0.5); Absolute Lymphocytes (CBC) 0.4 K/uL (0.7-4.9); Absolute Monocytes 0.6 K/uL (0.1-1.3); Absolute Neutrophil 5.8 K/uL (1.8-8.0); Basophils % 0.1 % (0-1.3); Eosinophils % 3.8 % (0-4.4); Hematocrit 27.3 % (39.6-49.0); Hemoglobin 8.9 g/dL (13.6-17.9); Lymphocytes % 6.2 % (15.3-44.8); MCH 29.2 pg (27.0-35.0); MCHC 32.7 g/dL (32.0-36.0); MCV 89.3 fL (80-100); MPV 6.3 fL (7.6-11.3); Monocytes % 8.7 % (3.3-12.3); Nucleated Red Blood Cells % 0.1 % (0-0); Platelets 309 thou/uL (152-406); RBC Red Blood Cell Count 3.06 M/uL (4.33-5.43); Red Cell Distribution Width 18.4 % (12.1-15.2)
[2023-11-13 05:20] LABS: Neutrophils % 81.2 % (41.7-73.7)
[2023-11-13] MEDS: LEVOTHYROXINE SOD 0.125 MG TAB PO SCH (05:24)
[2023-11-13 05:35] LABS: Anion Gap 4.4 mEq/L (5.0-15.0); Magnesium 2.2 mg/dL (1.6-2.4); Potassium 4.4 mEq/L (3.5-5.1)
[2023-11-13 08:42] VITALS: BP 90/54; TEMP 97.2
[2023-11-13] MEDS: FOLIC ACID 1 MG TABLET PO SCH (08:50)
[2023-11-13] MEDS: predniSONE 20 MG TAB PO SCH (08:52)
[2023-11-13 09:18] VITALS: O2SAT 94
--- NOTE | 2023-11-13 09:59 | RAD REPORT ---
EXAM DESCRIPTION: CT - Abdomen Pelvis W Contrast - 11/13/2023 1:16 am CLINICAL HISTORY: The patient is 78 years old and is Male; Severe constipation TECHNIQUE: Axial computed tomography images of the abdomen and pelvis with intravenous contrast. S agittal and coronal reformatted images were created and reviewed. This CT exam was performed using one or more of the following dose reduction techniques: automated exposure control, adjustment of t he mA and/or kV according to patient size, and/or use of iterative reconstruction technique. COMPARISON: CT August 06, 2022 FINDINGS: LUNG BASES: Suggestion of fibrosis with associated consolidation in the right lower lobe is noted. PLEURAL SPACE: A right pleural effusion is present with associated pleural thickening and irregul arity. Trace left pleural effusion is noted. ABDOMEN: LIVER: Unremarkable. No mass. GALLBLADDER AND BILE DUCTS: No calcified stones. No ductal dilation. PANCREAS: No ductal dilation. No mass. SPLEEN: Unremarkable. ADRENALS: Unremarkable. No mass. KIDNEYS AND URETERS: Unremarkable. The kidneys enhance symmetrically. No obstructing renal or ure teral calculus is seen. No hydronephrosis or hydroureter. No perinephric fluid or stranding. STOMACH AND BOWEL: The stomach is decompressed. The small bowel is fluid-filled and relatively no rmal in caliber. A moderate amount stool is present throughout the colon. There is no mucosal thicken ing or evidence of obstruction. Small bowel containing right inguinal hernia is noted. PELVIS: APPENDIX: The appendix is normal in caliber without surrounding inflammation. BLADDER: Unremarkable. No mass. REPRODUCTIVE: Unremarkable as visualized. ABDOMEN and PELVIS: INTRAPERITONEAL SPACE: Unremarkable. No free air. No significant fluid collection. BONES/JOINTS: The bones are osteopenic. Chronic compression fractures of the superior endplate of L2 and L3 are noted. Sclerosis and irregularity at T10 is present, similar to prior exam. There is n o acute fracture. Schmorl's nodes at superior endplates of T12 and L1 are present. SOFT TISSUES: Fat-containing left inguinal hernia is present. VASCULATURE: Atherosclerosis of the vasculature is present. The vessels are normal in caliber. No abdominal aortic aneurysm. LYMPH NODES: Unremarkable. No enlarged lymph nodes. IMPRESSION: 1. Right lower lobe pneumonia with complex right parapneumonic effusion/empyema. 2. Moderate stool burden without obstruction. 3. Chronic findings as detailed above. Electronically signed by: Shellie Ferguson MD 11/12/2023 11:33 PM CDT RP Due to temporary technical issues with the PACS/Fluency reporting system, reports are being signed by the in house radiologist without review as a courtesy to ensure prompt reporting. The interpreting r adiologist is fully responsible for the content of the report.
--- NOTE | 2023-11-13 22:12 | P.DS ---
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 HEIS STABLE ON CHEMO. HE HAS SEVERE COPD AND CONTINUES TO SMOKE. HIS CONSITPATION HAS RELIVED. HE IS STABLE FOR HOME AND WILL FU WITH FOR ONCOLOGY. HE HAS QUESTIONS ABOUT EVERY MEDICINE AND EVERY LITTLE ADVERSE REACTION BUT THE BIGGEST HABT HE NEEDS TO QUIT IS SMOKING. Vital Signs/Physical Exam: Temp Pulse Resp BP Pulse Ox 97.2 F 72 18 90/54 L 96 11/13/23 08:00 11/13/23 08:00 11/13/23 08:00 11/13/23 08:00 11/13/23 08:00 Laboratory Data at Discharge: WBC 7.10 thou/uL (4.3-10.9) 11/13/23 05:06 Hgb 8.9 g/dL (13.6-17.9) L 11/13/23 05:06 Hct 27.3 % (39.6-49.0) L 11/13/23 05:06 Plt Count 309 thou/uL (152-406) 11/13/23 05:06 PT 12.8 SECONDS (9.4-12.5) H 11/12/23 18:00 INR 1.15 11/12/23 18:00 APTT 31.4 SECONDS (24.3-36.9) 11/12/23 18:00 Sodium 136 mEq/L (136-145) 11/13/23 05:06 Potassium 4.4 mEq/L (3.5-5.1) 11/13/23 05:06 BUN 17 mg/dL (7-18) 11/13/23 05:06 Creatinine 1.12 mg/dL (0.70-1.30) 11/13/23 05:06 Glucose 92 mg/dL (74-106) 11/13/23 05:06 Magnesium 2.2 mg/dL (1.6-2.4) 11/13/23 05:06 Total Bilirubin 0.2 mg/dL (0.2-1.0) 11/12/23 18:00 AST 26 U/L (15-37) 11/12/23 18:00 ALT 22 U/L (16-61) 11/12/23 18:00 Alkaline Phosphatase 82 U/L (45-117) 11/12/23 18:00 Home Medications: Albuterol Neb [Proventil 0.083% Neb Soln] 2.5 mg NEB [id number] amp 06/07/22 levoFLOXacin [Levaquin*] 750 mg PO Q48H tab 06/07/22 predniSONE [Prednisone*] 10 mg PO DAILY tab 06/07/22 Folic Acid 1 mg PO DAILY 11/12/23 Levothyroxine [Synthroid] 125 mcg PO [id number] 11/12/23 Followup: Antony Flores MD [Primary Care Provider] - 1-2 Weeks
--- NOTE | 2023-11-24 13:10 | EKG ---
Test Date: 2023-11-12 Test Time: 21:58:25 Manager Primary: FRANKLIN MEASUREMENT RESULTS: Intervals: Rate: 75 NM: 156 QRSD: 136 QT: 414 QTc: 462 [place]: P: 62 NM: 156 QRS: 124 T: 53 INTERPRETIVE STATEMENTS: Sinus rhythm with premature atrial complexes Right bundle branch block Left posterior fascicular block Bifascicular block Abnormal ECG Compared to ECG 11/02/2023 10:52:14 Atrial premature complex(es) now present Left posterior fascicular block now present Bifascicular block now present Electronically Signed On 11-24-23 12:53:55 CDT by Renzo Samuel
== END 2023-11-13 09:28 | disposition home or self-care (01) ==
LOC: 2ND 16:19
PROVIDERS: ADMIT Internal Medicine; ATTEND Internal Medicine
DX: K59.00 Constipation, unspecified (principal); J44.9 Chronic obstructive pulmonary disease, unspecified; C34.90 Malignant neoplasm of unspecified part of unspecified bronchus or lung; C79.51 Secondary malignant neoplasm of bone; F17.210 Nicotine dependence, cigarettes, uncomplicated; Z71.6 Tobacco abuse counseling
CPT/HCPCS: 36415; 71045; 74177; 80048; 80076; 83735; 85025; 85610; 85730; 93005; 94640; G0378; G0379; J1650; J7512; J7613; Q9967